=== PATIENT | female | born 1955 | race Caucasian/White ===

== ENCOUNTER 2022-02-03 10:49 | Inpatient (IN) ==
--- NOTE | 2022-01-12 15:29 | PAT Medication Instructions ---
Medication Instructions Date of Service January 12, 2022 Home Medications Medication Instructions Recorded albuterol sulfate 90 mcg/actuation 2 puff inhalation Q6H PRN 07/28/21 aerosol inhaler shortness of breath or wheezing #18 grams metformin 500 mg tablet 500 mg PO BID #180 tabs 12/29/21 canagliflozin 100 mg tablet 100 mg PO DAILY #30 tabs 01/11/22 albuterol sulfate 90 mcg/actuation aerosol inhaler 2 puff inhalation Q6H PRN olmesartan 40 mg tablet (Benicar) 40 mg PO QAM metoprolol succinate 50 mg tablet,extended release 24 hr (Toprol XL) 50 mg PO QAM clopidogrel 75 mg tablet (Plavix) 75 mg PO QAM metformin 500 mg tablet 500 mg PO BID canagliflozin 100 mg tablet 100 mg PO DAILY amlodipine 10 mg tablet 10 mg PO QAM STOP 3 days before surgery canagliflozin 100 mg tablet 100 mg PO DAILY ASK your prescriber and surgeon clopidogrel 75 mg tablet (Plavix) 75 mg PO QAM DO NOT take the morning of surgery olmesartan 40 mg tablet (Benicar) 40 mg PO QAM metformin 500 mg tablet 500 mg PO BID Take morning of surgery With a small sip of water, OTHERWISE NOTHING TO EAT OR DRINK AFTER MIDNIGHT: albuterol sulfate 90 mcg/actuation aerosol inhaler 2 puff inhalation Q6H PRN(use if needed; please bring with you to hospital day of surgery if possible) metoprolol succinate 50 mg tablet,extended release 24 hr (Toprol XL) 50 mg PO QAM amlodipine 10 mg tablet 10 mg PO QAM Take evening before surgery albuterol sulfate 90 mcg/actuation aerosol inhaler 2 puff inhalation Q6H PRN(if needed) Other Notes If you have any questions please call us at [phone] or [phone] or [phone] or [phone]
--- NOTE | 2022-01-16 14:10 | Anesthesiology Consultation ---
Date of Service January 16, 2022 Assessment & Plan (1) Encounter for pre-operative examination: - COVID screening: Per assessment on 01/16: No known COVID-19 positive contacts or current COVID-19 related symptoms. Travel screen negative. Patient vaccinated. At surgeon discretion if preop Covid testing being done. - PCP office visit (12/15/21): "I am seeing Ms. Peraza at the request of Dr. Hammer today for preoperative clearance for an upcoming Right Carotid Endarterectomy surgical intervention. As you know sherif is a very pleasant female with a past medical history as noted below. After a careful review of her chart, evaluation of her medical file, and a thorough physical examination, I have found that she is an guarded risk surgical candidate given her cardiac, pulmonary, Infectious and functional capacity. At this time, patient is medically cleared. Discussed need to f/u with Dr. Juares- Cardiology for pre- op clearance as well. After careful discussion of risks and benefits of surgical intervention, Ms. Peraza wishes to pursue the proposed surgical intervention. Blood work noted and discussed. EKG- NSR with 1st degree AV block." Patient s witched from carotid endarterectomy to Right Transcarotid Artery Revascularization. - Cardiology addendum (01/09/22): "Her stress test albeit at a submaximal HR was nonischemic. I think the risk with a Lexiscan nuke is significant as we may drop her blood pressure with Lexiscan and cause cerebral hypoperfusion with her significant carotid dz and aortic disease. She can proceed with CEA at intermediate risk 4-5% of cardiac complications including [place], , arrhythmia and CHF. I would be judicious with her fluids in the perioperative period to avoid CHF. We should see post op within a couple of weeks prior to planned open AAA repair.. The above mentioned CEA is actually a TCAR and the cardiac risk is unchanged" - Preop CXR: Done 01/16/22 at [facility]- noted "Emphysema with changes of superimposed chronic interstitial lung disease. Dependent airspace opacities may be related to chronic lung disease. Correlate clinically for evidence of a superimposed pneumonitis." Pt had recent Chest CT done 12/10/21 that showed "Reticular interstitial thickening with superimposed groundglass opacities compatible with fibrotic changes. Superimposed infectious/inflammatory process cannot be excluded. Findings are overall similar to appearance in 2020 and 2021." Chest CT done 12/10/21 was ordered by PCP who is monitored the chest imaging findings. PCP preop evaluation appt done 12/15/21. Patient denies cardiopulmonary complaints at PAT visit 01/16/22* Chart Review Chart Review: Acceptable Risk for Surgery (pending evaluation AM DOS) and Patient seen in Pre Admission Testing Teaching & Discussion Pre-Anesthesia Teaching/Discussion Notes: Instructed NPO after midnight before surgery,except medications with 15 cc of water. Medication instructions provided according to the [facility] guidelines. History Surgery Operation Date: 02/03/22 13:10 Proposed Procedures p Right Transcarotid Artery Revascularization - Rick Hammer MD Height/Weight Height: 5 ft 2 in Weight: 70.2 kg Allergies Allergy/AdvReac Type Severity Reaction Status Date / Time amoxicillin Allergy Mild RASH Verified 01/12/22 09:04 Medications Home Medications Medication Instructions Recorded Confirmed Last Taken albuterol sulfate 90 mcg/actuation 2 puff inhalation Q6H PRN 07/28/21 01/12/22 Unknown aerosol inhaler shortness of breath or wheezing #18 grams olmesartan 40 mg tablet (Benicar) 40 mg PO QAM 07/28/21 01/12/22 Unknown metoprolol succinate 50 mg 50 mg PO QAM 10/30/21 01/12/22 Unknown tablet,extended release 24 hr (Toprol XL) clopidogrel 75 mg tablet (Plavix) 75 mg PO QAM 12/15/21 01/12/22 Unknown metformin 500 mg tablet 500 mg PO BID #180 tabs 12/29/21 01/12/22 Unknown canagliflozin 100 mg tablet 100 mg PO DAILY #30 tabs 01/11/22 01/12/22 Unknown amlodipine 10 mg tablet 10 mg PO QAM 01/12/22 01/12/22 Unknown Past Medical History Medical History (Updated 01/16/22 @ 14:07 by Kori Buitrago) Abdominal aortic aneurysm Infrarenal aortic aneursym 53mm at maximal diameter per 09/23/21 abdomen/pelvis CTA (Follows with Dr. Zuniga with [facility]) Per 10/14/21 Dr. Hammer note- plan for open AAA repair as open procedure at [facility] (pt and Dr. 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 to the [place]; >75% stenosis of right ICA per 02/2021 neck CTA Depression Diabetes type 2, uncontrolled Hearing loss Only 5% function in left ear, [place] in right wears a right hearing aid HLD (hyperlipidemia) HTN (hypertension) Obesity Scarring of lung RECENT LUNG CT AT [facility] Sleep apnea Sleep study done- mild- no cpap Subclavian arterial stenosis 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 per 02/2021 neck CTA Past Family History Family History Brother Hypertension Other No family history of adverse response to anesthesia Denies family history of Ovarian cancer Prostate cancer Breast cancer Lung cancer Colorectal cancer Past Surgical History Surgical History H/O heart artery stent 3 STENTS IN, 2012-done at [facility] - DR KAPLAN LAST VISIT 08/2021 History of ear surgery History of tubal ligation Social History Smoking Status: Current every day smoker tobacco type: cigarettes Smoking cigarettes per day: 10 CIG DAILY Do You Dip or Chew Tobacco: No Hx Alcohol Use: No substance use type: does not use Review of Systems Patient denies chest pain, shortness of breath, dyspnea on exertion, fever, chills, cough, wheezing, palpitations. Physical Exam Vital Signs VITALS BP 106/67 P 75 TEMP 98.5 SP02 96%RA RESP 18 PHYSICAL Full cervical extension range of motion. Full TMJ range of motion. TMD 2.5 finger breaths Mallampati Score 2 Dentition: intact Lungs: clear throughout to auscultation Cardiac: regular rate and rhythm, no murmurs noted Spine: normal Carotid arteries: negative bruit Extremities: no edema Lab Results Anesthesia Preop Results Results Anesthesia Widget: WBC 10.18 K/ul (4.8-10.8) 01/16/22 Hgb 16.7 g/dl (12.0-16.0) H 01/16/22 Hct 47.4 % (34.1-44.9) H 01/16/22 Plt 285 K/uL (130-400) 01/16/22 Na 138 mmol/L (136-145) 01/16/22 K 3.8 mmol/L (3.5-5.1) 01/16/22 Cl 108 mmol/L (98-107) H 01/16/22 CO2 21 mmol/L (21-32) 01/16/22 BUN 19 mg/dl (6-23) 01/16/22 Creat 0.78 mg/dl (0.6-1.2) 01/16/22 Glucose Level 93 mg/dl (70-99(Fasting)) 01/16/22 PT 10.9 Seconds (9.0-12.0) 01/16/22 PTT 30.6 Seconds (21.0-31.0) 01/16/22 INR 1.0 (0.9-1.1) 01/16/22 Blood Type O Positive 01/16/22 Antibody Screen NEGATIVE 01/16/22 Testing Electrocardiogram Date: 12/15/21 Sinus rhythm with first-degree AV block at 79 bpm. Chest X-Ray Date: 01/16/22 FINDINGS: PA and lateral chest radiographs are compared to study dated 12/02/2021 and correlated with chest CT dated 12/10/2021. The cardiomediastinal silhouette is unremarkable noting atherosclerotic calcification of the thoracic aorta. Emphysema with changes of chronic interstitial lung disease is similar to previous. Given airspace opacities are noted at both lung bases. No pleural effusion or pneumothorax is identified. The skeletal structures are osteopenic. The bony thorax appears intact. A large peripheral calcified aneurysm is noted involving the abdominal aorta. IMPRESSION: Emphysema with changes of superimposed chronic interstitial lung disease. Dependent airspace opacities may be related to chronic lung disease. Correlate clinically for evidence of a superimposed pneumonitis. Stress Test Type: exercise (ECHO ) Exercise stress echocardiogram and EKG for ischemia at MPHR 71%. Average exercise tolerance for age and gender, 87% of predicted, achieving 5.5 METS. Baseline echo: Normal LV size and systolic function with no regional wall motion abnormalities. EF 65%. Asymmetric basal septal hypertrophy of the elderly. Other Testing Abdomen/Pelvis CTA 09/23/21 Infrarenal aortic aneurysm measuring 53 mm in maximal diameter. Extensive atherosclerotic disease without hemodynamically significant stenosis of the great vessel origins. Neck CTA 03/04/21 There is complete thrombosis of the left internal carotid artery from the bifurcation to the [place].There is complete thrombosis at the origin of the left subclavian artery. This is reconstituted below the thoracic outlet. Note that this may place the patient at risk for steal phenomenon.There is severe (greater than 75%) focal stenosis at the origin of the right internal carotid artery. The vertebral arteries are widely patent bilaterally. Emphysema. COVID-19 Risk Screen Screening Information COVID-19 Screen Date: 01/16/22 Exposure 21 Days Family/Household +COVID Last 21 Days: No Exposure 10 Days Any COVID Exposure Last 10 Days: No Symptoms Last 10 Days Experienced COVID Sx Last 10 Days: No + COVID 0-90 Days COVID + in Last 0-90 Days: No
--- NOTE | 2022-02-02 12:11 | History & Physical Report ---
Date of Service February 02, 2022 Assessment & Plan (1) Stenosis of right carotid artery: Plan: Patient admitted for a TCAR procedure of her right carotid artery. I have discussed the risks options and benefits of the procedure with the patient. The patient understands the risks options and benefits and agrees to the procedure. History of Present Illness Primary Care Provider: Malissa Dominguez DO Jacinta is a 65-year-old female who has an enlarging abdominal aortic aneurysm and is in need of repair. This was going to be done as an open procedure at [place]. She does have a severe stenosis of her right internal carotid artery and occlusion of her left internal carotid artery. She also has an occluded left subclavian artery. At this point she would prefer to have the endarterectomy done here at [facility] and then go ahead with her aortic surgery once she is recovered from the carotid surgical procedure. She is asymptomatic from her carotid disease at this point in time. She was to undergo a right carotid endarterectomy. As of September of this year TCAR procedure has been available to normal risk patients. We discussed the risks options liat efits of a TCAR versus carotid endarterectomy. Allergies Allergy/AdvReac Type Severity Reaction Status Date / Time amoxicillin Allergy Mild RASH Verified 01/12/22 09:04 Home Medications Medication Instructions Recorded Confirmed Type albuterol sulfate 90 mcg/actuation 2 puff inhalation Q6H PRN 07/28/21 01/12/22 Rx aerosol inhaler shortness of breath or wheezing #18 grams olmesartan 40 mg tablet (Benicar) 40 mg PO QAM 07/28/21 01/12/22 History metoprolol succinate 50 mg 50 mg PO QAM 10/30/21 01/12/22 History tablet,extended release 24 hr (Toprol XL) clopidogrel 75 mg tablet (Plavix) 75 mg PO QAM 12/15/21 01/12/22 History metformin 500 mg tablet 500 mg PO BID #180 tabs 12/29/21 01/12/22 Rx canagliflozin 100 mg tablet 100 mg PO DAILY #30 tabs 01/11/22 01/12/22 Rx amlodipine 10 mg tablet 10 mg PO QAM 01/12/22 01/12/22 History Past Med/Surg History Medical History Abdominal aortic aneurysm Infrarenal aortic aneursym 53mm at maximal diameter per 09/23/21 abdomen/pelvis CTA (Follows with Dr. Zuniga with [place]) Per 10/14/21 Dr. Hammer note- plan for open AAA repair as open procedure at [place] (pt and Dr. 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 to the [place]; >75% stenosis of right ICA per 02/2021 neck CTA Depression Diabetes type 2, uncontrolled Hearing loss Only 5% function in left ear, [place] in right wears a right hearing aid HLD (hyperlipidemia) HTN (hypertension) Obesity Scarring of lung RECENT LUNG CT AT [facility] Sleep apnea Sleep study done- mild- no cpap Subclavian arterial stenosis 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 per 02/2021 neck CTA Surgical History H/O heart artery stent 3 STENTS IN, 2012-done at [facility] [place] - DR KAPLAN LAST VISIT 08/2021 History of ear surgery History of tubal ligation Family History Brother Hypertension Other No family history of adverse response to anesthesia Denies family history of Ovarian cancer Prostate cancer Breast cancer Lung cancer Colorectal cancer Social History Smoking Status: Current every day smoker Age Started Using Tobacco: 19; packs per day: 1; Cigarettes Per Day: 10 CIG DAILY; Second Hand Exposure: No; Hx Alcohol Use: No Preferred Language: Malay Communication Ability: Impaired Visual Impairment: No Limitations Hearing Ability: Use of Hearing Aid Thread Grinder Required: No Beliefs That Will Affect Care: None marital status: Current Living Situation: Spouse current occupational status: employed current occupation: secratary Feels Safe at Home: Yes Childhood Exposure to Second-Hand Smoke: No caffeine: Yes (coffee) during the past year weight has: remained stable Dental Care, Regularly: No Physical Activity Frequency: Does not Exercise Seatbelt Use: always Sunscreen Use: No Assistive Devices: Glasses and Hearing Aid - Right Review of Systems All systems reviewed & are unremarkable except as noted in HPI & below Physical Exam Physical Exam: On exam she is awake alert and oriented x3. She is no apparent distress. Blood pressure is 130/52. Lungs are clear and her heart had a regular rate and rhythm. Abdominal exam is benign. Radials are +2 on the right cannot be felt on the left. Femorals are +2. Cannot appreciate pedal pulses in the feet. Capillary refill is normal in both feet. Neurologic exam is intact to motor and sensory function.
[~2022-02-03 10:49] MED LIST: CLINDAMYCIN/D5W 600 MG/54 ML BAG IV SCH; LACTATED RINGER'S 1,000 ML IV SCH; SUGAMMADEX SODIUM 200 MG/2 ML VIAL IV ONE
[2022-02-03] MEDS ORDERED: ePHEDrine sulfate 50 MG/ML AMP IV PRN (12:19)
[2022-02-03] MEDS ORDERED: ONDANSETRON INJ 2 MG/ML 2 ML VIAL IV PRN (12:19)
[2022-02-03] MEDS ORDERED: HYDROmorphone INJ 2 MG/ML SYR/VIAL IV PRN (12:19)
[2022-02-03] MEDS ORDERED: fentaNYL citrate 100 MCG/2 ML VIAL IV PRN (12:19)
[2022-02-03] MEDS ORDERED: ATROPINE SULFATE 0.1 MG/ML 10ML SYR IV PRN (12:19)
[2022-02-03] MEDS ORDERED: MIDAZOLAM HCL 1 MG/ML 2ML VIAL ONE (12:31)
[2022-02-03] MEDS ORDERED: ASPIRIN 81 MG CHEW PO STA (12:32)
--- NOTE | 2022-02-03 12:57 | History & Physical Bridge Note ---
Date of Service February 03, 2022 History & Physical Bridge Note I have examined the patient, reviewed the History & Physical and in the interval since the performance of the History & Physical I have noted the following changes of clinical significance: no changes noted
[2022-02-03] MEDS ORDERED: THROMBIN FOR SOLN 20000 UNIT KIT ONE (13:04)
[2022-02-03] MEDS ORDERED: fentaNYL citrate 100 MCG/2 ML VIAL ONE (13:16)
[2022-02-03] MEDS ORDERED: GLYCOPYRROLATE 0.2 MG/ML VIAL ONE (13:32)
--- NOTE | 2022-02-03 13:55 | Anesthesia Procedure Note ---
Anesthesia Procedure Note Arterial Line Note Patient medical history, medications, allergies and vitals reviewed. Consent: Risk / Benefits Reviewed With: PT / POA / Parent / Guardian, Accepts Plan, Informed Consent Obtained and All Questions Answered Monitors attached: Blood Pressure, CO2, EKG and Pulse Oximetry Time out completed: Yes Premedication: Midazolam (mg) (2) Laterality: Right Location: Radial Hand hygeine: Soap and water and Alcohol based hand rub Equipment/Supplies: Cap, Mask, Sterile gown, Sterile gloves, Sterile drapes and Sterile procedures used Skin prep: Chloraprep Local medication: 1% Lidocaine (ml) Ultrasound used: Yes US equipment and supplies: Sterile Gel Everardo test: Negative (return of flow) Attempts: 1 Procedure Summary: 20 gauge angiocath advanced until return of bright red blood. Catheter threaded using seldinger technique with return of pulsatile, bright red blood. Catheter secured with tape and covered with occlusive dressing. Waveform consistent with correct arterial placement. After placement, normal perfusion was observed distal to the site of catheter placement. procedure completed prior to OR. late entry Post-Procedure: Pt hemodynamically stable, Pt tolerates well and No complication Anesthesia Charges Arterial Line A Line Charges: 31962 Insert Art line Samp/Mon/Cornelius
[2022-02-03] MEDS ORDERED: VISIPAQUE IV ONE (14:22)
[2022-02-03] MEDS ORDERED: HEPARIN SOD (PORCINE) 1000 UNIT/ML ONE (14:50)
[2022-02-03] MEDS ORDERED: ONDANSETRON INJ 2 MG/ML 2 ML VIAL ONE (14:50)
[2022-02-03] MEDS ORDERED: ePHEDrine sulfate 50 MG/ML SYR ONE (14:50)
[2022-02-03] MEDS ORDERED: PHENYLEPHRINE HCL 10 MG/ML VIAL ONE (14:50)
[2022-02-03] MEDS ORDERED: PROPOFOL IV EMULSION 10 MG/ML 20 ML VIAL IV ONE (14:50)
--- NOTE | 2022-02-03 15:04 | Operative Report ---
Post Operative Report Pre & Post Diagnosis Operation Date: 02/03/22 13:00 Pre-Op Diagnosis: Right Internal Carotid Artery Stenosis Post-Op Diagnosis: Right Internal Carotid Artery Stenosis I identified the patient and participated in the time-out.: Yes Procedure Operation Date: 02/03/22 13:00 Actual Procedures p Right Transcarotid Artery Revascularization(Right), ultrasound localization of left femoral vein - Rick Hammer MD Surgeon Rick Hammer MD [employer] V[employer],PAC Estimated Blood Loss 20 Findings Consistent with Post-Op Diagnosis Specimens none Anesthesia Type General Complications none Disposition Accompanied Patient To Recovery: No Disposition: Recovery Room Indications This is a 66-year-old female who has a large abdominal aortic aneurysm and was found to have a severe stenosis of her right internal carotid artery. Intervention was recommended. We discussed TCAR versus endarterectomy. She elected to go ahead with TCAR procedure. I have discussed the risks options and benefits of the procedure with the patient. The patient understands the risks options and benefits and agrees to the procedure. Description of Procedure The patient was taken to the operating room and placed in supine position. After general anesthesia was accomplished the groins and right side of the neck and chest were prepped and draped in a sterile manner. Timeout was performed and the patient was identified. A transverse incision was made just above the clavicle between the heads of the sternocleidomastoid. This was carried down to where the common carotid artery was identified. It was isolated and slung with an umbilical tape. It was given 7000units of heparin at that time. Ultrasound was then used to localize the left common femoral vein. The vein was patent and compressed easily. Under ultrasound guidance the left common femoral vein was punctured and the venous sheath was inserted. This was aspirated and flushed with heparinized saline. An ACT at that time was 273. Using micropuncture technique the common carotid artery was punctured. The micro sheath was inserted to 3 cm. Injection was then done showing the bifurcation. There was a significant lesion seen at the origin of the internal carotid artery on the right side. We then inserted the J-wire and keep it short of the bifurcation of the carotid artery. The TCAR sheath was inserted. Once it was in place and held against the artery it was sutured to the chest wall and the incision edge. We then flushed the tubing appropriately. The venous return tubing was clamped onto the TCAR sheath. It was flushed through and then attached to the venous inflow sheath in the left groin. The sheath was checked for flow. We then inserted a 4 x 3 balloon backloaded on the wire. We could not pass the wire into the internal carotid artery. We then used a Kumpe catheter to get the angle of the internal. Using the Kumpe the wire passed into the internal carotid artery up to the petrous portion. The Kumpe was then removed. The 4 balloon was then advanced to the lesion. The lesion was then predilated with the 4 mm balloon. The balloon was removed. We then inserted the 9 x 30 stent. This was deployed across the lesion without difficulty. The catheter was removed. The stent itself jumped forward and did not cover the entire proximal portion of the lesion. At that point was decided to insert another stent. We passed the 4 x 3 balloon again to try to expand the stent. The balloon would not pass. We then reinserted the Kumpe. This would not and a distended either. We then cut off a proximally 45 cm of an 014 quick cross and inserted that over the 014 wire. This was able to cross into the stent to beyond the distal end of the stent. We then exchanged a wire to an 014 command ES. Using a 4 x 4 Armando balloon we dilated the proximal portion of the stent. It dilated up nicely. This balloon was removed. We then inserted another 9 x 30 stent. This overlapped the old stent and deployed nicely extending into the distal common carotid artery. The carotid was allowed to go 2 minutes with flow reversal. Completion angiogram was done at that time which showed no residual stenosis. We did not post balloon the second stent placed. The wire was removed. At that point the common carotid artery was unclamped. The venous return tubing was clamped and removed from the TCAR sheath. The blood was allowed to flow back into the venous system. Once this was completed the sheath was pulled from the groin and pressure was applied. The TCAR sheath was then removed and the 5-0 Prolene suture securely tied. Hemostasis was noted of the puncture site. Wound was irrigated with Ancef solution. Adequate hemostasis was obtained of the wound. Once this was noted the wound was closed in usual fashion using a 3-0 Vicryl suture for the subcutaneous layer and a 4-0 subcuticular Vicryl suture for the skin edges. Dermabond was used for dressing.The patient left the operation room in satisfactory condition and tolerated the procedure well. All needle and sponge counts were correct at the end of the procedure. Simi Mosqueda Pac assisted due to lack of resident availability and was necessary for positioning, draping, retraction, wound closure deep layers, subcutaneous tissue, and skin closure and was necessary for assisting with the case. I attest to the content of the Intraoperative Record and any orders documented therein. Any exceptions are noted below.
[2022-02-03] MEDS ORDERED: ALBUT/IPRATROP 3MG/0.5MG NEB 3 ML VIAL ONE (15:56)
--- NOTE | 2022-02-03 16:01 | Communication Note ---
Date of Service: February 03, 2022 pt c/o difficulty breathing. Pt is CTA b/l but slightly prolonged exhalation. I listened to her upper airway and did not hear any abnormalities. Air moved freely. Pt recently quit smoking <1 month ago. I ordered a duoneb to try to imrpve exhalation
--- NOTE | 2022-02-03 16:06 | Anesthesiology Progress Note ---
Date of Service February 03, 2022 Anesthesia Post Procedure Vital Signs Vital Signs: Temp Pulse Pulse Resp BP BP BP 02/03/22 15:55 81 17 121/69 129/65 02/03/22 15:45 81 15 115/66 120/48 L 02/03/22 15:35 81 19 119/65 121/58 L 02/03/22 15:27 36.1 C L 84 18 113/90 105/49 L 02/03/22 11:20 36.9 C 72 20 95/65 L 142/60 H Pulse Ox O2 Del Method O2 Flow Rate 02/03/22 15:55 100 Oxymask 4 02/03/22 15:45 99 Oxymask 4 02/03/22 15:35 99 Oxymask 9 02/03/22 15:27 98 Oxymask 9 02/03/22 11:20 97 Room Air Transfer of Care Handoff Completed per policy Notes Mental Status: alert / awake / arousable and participated in evaluation Patient Amnestic to Procedure: Yes Nausea / Vomiting: adequately controlled Pain: adequately controlled Airway Patency, RR, SpO2: stable & adequate BP & HR: stable & adequate Hydration State: stable & adequate Anesthetic Complications: no major complications apparent and Pt Satisfied with anesthetic care Notes: pt feels better after duoneb. ok to go to icu
--- NOTE | 2022-02-03 16:27 | Critical Care Consultation ---
Date of Consultation February 03, 2022 Assessment & Plan (1) Stenosis of right carotid artery: Status post right TCAR. Continue frequent neurovascular checks and close evaluation of the airway. Pain control and blood pressure control per vascular surgery team. Defer antiplatelet therapy/statin to vascular surgery. (2) Tobacco use: Patient notes she quit smoking 1 month ago. DuoNebs as needed. (3) CAD (coronary artery disease): History of extensive coronary artery disease. Monitor closely on telemetry. (4) Abdominal aortic aneurysm: Patient going to undergo open repair at [facility] at a later date. (5) Diabetes type 2, uncontrolled: Sliding scale insulin History of Present Illness Reason for Consultation: Status post right TCAR Attending Physician: Rick Hammer MD History of Present Illness 66-year-old female with a history of left subclavian artery stenosis, left carotid artery stenosis, high-grade stenosis of the right internal carotid, coronary artery disease status post angioplasty to the circumflex,, occlusion of RCA mid LAD and LAD stent, hyperlipidemia, hypertension and tobacco abuse who presented for elective right TCAR. She also has enlarging abdominal aortic aneurysm which she is not going to undergo surgery at [facility]. Hemodynamics are stable postoperatively. She is complaining of pain at the incision site at the base of the right neck. She was also having some trouble with shortness of breath post extubation which has improved some. She is very hard of hearing and review of systems is difficult to obtain. She denies any chest pain. No nausea or vomiting. She is very anxious. She has an arterial line in place. She is currently on 2 L of oxygen. Daughter is at bedside. Allergies Allergy/AdvReac Type Severity Reaction Status Date / Time amoxicillin Allergy Mild RASH Verified 02/03/22 11:17 Home Medications Medication Instructions Recorded Confirmed Type albuterol sulfate 90 mcg/actuation 2 puff inhalation Q6H PRN 07/28/21 02/03/22 Rx aerosol inhaler shortness of breath or wheezing #18 grams olmesartan 40 mg tablet (Benicar) 40 mg PO QAM 07/28/21 02/03/22 History metoprolol succinate 50 mg 50 mg PO QAM 10/30/21 02/03/22 History tablet,extended release 24 hr (Toprol XL) clopidogrel 75 mg tablet (Plavix) 75 mg PO QAM 12/15/21 02/03/22 History metformin 500 mg tablet 500 mg PO BID #180 tabs 12/29/21 02/03/22 Rx amlodipine 10 mg tablet 10 mg PO QAM 01/12/22 02/03/22 History aspirin 81 mg tablet 81 mg PO DAILY 02/03/22 02/03/22 History canagliflozin 100 mg tablet 100 mg PO DAILY 02/03/22 02/03/22 History (Invokana) rosuvastatin 20 mg tablet 20 mg PO DAILY 02/03/22 02/03/22 History Patient History Medical History Abdominal aortic aneurysm Infrarenal aortic aneursym 53mm at maximal diameter per 09/23/21 abdomen/pelvis CTA (Follows with Dr. Zuniga with [facility]) Per 10/14/21 Dr. Hammer note- plan for open AAA repair as open procedure at [facility] (pt and Dr. 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 to the [place]; >75% stenosis of right ICA per 02/2021 neck CTA Depression Diabetes type 2, uncontrolled Hearing loss Only 5% function in left ear, [place] in right wears a right hearing aid HLD (hyperlipidemia) HTN (hypertension) Obesity Scarring of lung RECENT LUNG CT AT [facility] Sleep apnea Sleep study done- mild- no cpap Subclavian arterial stenosis 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 per 02/2021 neck CTA Surgical History H/O heart artery stent 3 STENTS [place], 2012[place]done at [facility] [place] KAPLAN LAST VISIT 08/2021 History of ear surgery History of tubal ligation Family History Brother Hypertension Other No family history of adverse response to anesthesia Denies family history of Ovarian cancer Prostate cancer Breast cancer Lung cancer Colorectal cancer Social History Smoking Status: Current every day smoker Age Started Using Tobacco: 19; packs per day: 1; Cigarettes Per Day: 10 CIG DAILY; Second Hand Exposure: No; Do You Dip or Chew Tobacco: No; Hx Alcohol Use: No Hx Substance Use: No Preferred Language: Trinidadian Communication Ability: Impaired Communication Ability Comment: CAN NOT HEAR WITHOUT HEARING AID IN RT EAR>DEAF IN LEFT EAR Visual Impairment: No Limitations Hearing Ability: Use of Hearing Aid Development Technologist Required: No Beliefs That Will Affect Care: None marital status: Current Living Situation: Spouse current occupational status: employed current occupation: secratary Feels Safe at Home: Yes Safety Concerns: Feels Safe At This Time Childhood Exposure to Second-Hand Smoke: No caffeine: Yes (coffee) during the past year weight has: remained stable Dental Care, Regularly: No Physical Activity Frequency: Does not Exercise Seatbelt Use: always Sunscreen Use: No Assistive Devices: Hearing Aid - Right Assistive Devices Comment: DEAF IN LEFT EAR Review of Systems Review of Systems: All systems reviewed & are unremarkable except as noted in HPI & below Physical Exam Physical Exam: Constitutional: Patient appears to be of their stated age. Anxious appearing. Patient is well-developed. Eyes: Pupils are equal round and reactive to light. Conjunctivae are normal. Anicteric sclera. Ears nose, mouth and throat: Deferred. Neck: Trachea is midline. Visual inspection is normal. Respiratory: Clear to auscultation bilaterally. Prolonged phase of exhalation. Cardiovascular: Regular rate and rhythm. No murmurs. No edema. Gastrointestinal: Normal bowel sounds, soft, nontender and nondistended. No hepatosplenomegaly noted. Musculoskeletal: No cyanosis. Patient is able to move all extremities. Strength is 5 out of 5 in the upper and lower extremities. Skin: No rashes, warm dry and intact. Right horizontal incision noted at the base of the neck at the location of the TCAR which is held together with Dermabond. Neurologic: No obvious focal neurological deficits seen. Psychiatric: Alert and oriented x3 with an anxious affect. Results & Data Results & Data ([facility]) Vital Signs (Past 12 Hours) Vital Signs Temp Pulse Pulse Resp BP BP BP 02/03/22 16:15 88 13 116/59 L 114/44 L 02/03/22 16:05 36.2 C L 87 17 115/60 113/54 L 02/03/22 15:55 81 17 121/69 129/65 02/03/22 15:45 81 15 115/66 120/48 L 02/03/22 15:35 81 19 119/65 121/58 L 02/03/22 15:27 36.1 C L 84 18 113/90 105/49 L 02/03/22 11:20 36.9 C 72 20 95/65 L 142/60 H Pulse Ox O2 Del Method O2 Flow Rate 02/03/22 16:15 99 Nasal Cannula 2 02/03/22 16:05 100 Nasal Cannula 2 02/03/22 15:55 100 Oxymask 4 02/03/22 15:45 99 Oxymask 4 02/03/22 15:35 99 Oxymask 9 02/03/22 15:27 98 Oxymask 9 02/03/22 11:20 97 Room Air Coding Level of Care Code 00933 Inpt Consult Level 4 Diagnoses Stenosis of right carotid artery I65.21 Tobacco use Z72.0 CAD (coronary artery disease) I25.10 Abdominal aortic aneurysm I71.4 Diabetes type 2, uncontrolled
[2022-02-03] MEDS ORDERED: PHARMACY GLYCEMIC MGMT CONSULT PRN (16:41)
[2022-02-03] MEDS ORDERED: ALBUTEROL HFA 8 GM INHALER INH PRN (16:41)
[2022-02-03] MEDS: LACTATED RINGER'S 1,000 ML IV SCH (16:57)
[2022-02-03] MEDS: oxyCODONE/ACETAMINOPHEN 5mg/325mg TAB PO PRN ×2 (17:01→21:11)
[2022-02-03] MEDS ORDERED: CARBOHYDRATES FOR HYPOGLYCEMIA PO PRN (17:30)
[2022-02-03] MEDS ORDERED: GLUCOSE 10 TAB/TUBE PO PRN (17:30)
[2022-02-03] MEDS ORDERED: GLUCAGON FOR INJ 1 MG VIAL IM PRN (17:30)
[2022-02-03] MEDS ORDERED: DEXTROSE 50% 50 ML SYRINGE IV PRN (17:30)
[2022-02-03] MEDS ORDERED: GLUCOSE 40% GEL 15 GM TUBE PO PRN (17:30)
[2022-02-03] MEDS: INSULIN ASPART PER UNIT SC SCH ×2 (17:55→21:58)
[2022-02-03] MEDS ORDERED: MoRPHine SULFATE 2 MG/ML CARP IV PRN (18:35)
[2022-02-03] MEDS: CLINDAMYCIN/D5W 600 MG/50 ML BAG IV SCH (20:37)
[2022-02-03] MEDS ORDERED: metFORMIN HCL 500 MG TAB PO SCH (21:00)
[2022-02-03] MEDS ORDERED: LANTUS PER UNIT CHARGE SQ SCH (21:00)
[2022-02-04] MEDS: LACTATED RINGER'S 1,000 ML IV SCH (00:16)
[2022-02-04] MEDS ORDERED: INSULIN ASPART PER UNIT SC ONE (02:00)
[2022-02-04] MEDS: CLINDAMYCIN/D5W 600 MG/50 ML BAG IV SCH (05:41)
[2022-02-04] MEDS: INSULIN ASPART PER UNIT SC SCH ×3 (08:37→11:55)
[2022-02-04] MEDS ORDERED: FUROSEMIDE 40 MG/4 ML VIAL IV ONE (08:52)
[2022-02-04] MEDS ORDERED: LORazepam 1 MG in SYRINGE 0 ML IV STA (08:52)
--- NOTE | 2022-02-04 08:57 | Critical Care Progress Note ---
Date of Service February 04, 2022 Assessment & Plan (1) Hypoxia: Plan: Secondary to acute CHF. Continue to wean as able. (2) Acute diastolic (congestive) heart failure: Plan: We will give a one-time dose of 40 mg IV Lasix. Discussed with Dr. Hammer and he is in agreement. (3) Acute anxiety: Plan: Secondary to difficulty with communication as the patient is profoundly hard of hearing and CHF. We will give a dose of 1 mg Ativan and Lasix as noted above. (4) Stenosis of right carotid artery: Plan: Status post right TCAR. Continue frequent neurovascular checks and close evaluation of the airway. Pain control and blood pressure control per vascular surgery team. Defer antiplatelet therapy/statin to vascular surgery. (5) Tobacco use: Plan: Patient notes she quit smoking 1 month ago. DuoNebs as needed. (6) CAD (coronary artery disease): Plan: History of extensive coronary artery disease. Monitor closely on telemetry. (7) Abdominal aortic aneurysm: Plan: Patient going to undergo open repair at [facility] at a later date. (8) Diabetes type 2, uncontrolled: Plan: Sliding scale insulin Admission and Anticipated Discharge Date Admission Date: February 03, 2022 Subjective Patient seen and examined. She is profoundly hard of hearing. She is very anxious this morning and crying at times. She is complaining of shortness of breath. IV fluids have been discontinued. Review of Systems Review of Systems: All systems reviewed & are unremarkable except as noted in HPI & below Physical Exam Physical Exam: Constitutional: Patient appears to be of their stated age. Anxious appearing. Patient is well-developed. Eyes: Pupils are equal round and reactive to light. Conjunctivae are normal. Anicteric sclera. Ears nose, mouth and throat: Deferred. Neck: Trachea is midline. Visual inspection is normal. Respiratory: Diffuse crackles bilaterally. Mild tachypnea. Cardiovascular: Regular rate and rhythm. No murmurs. No edema. Gastrointestinal: Normal bowel sounds, soft, nontender and nondistended. No hepatosplenomegaly noted. Musculoskeletal: No cyanosis. Patient is able to move all extremities. Strength is 5 out of 5 in the upper and lower extremities. Skin: No rashes, warm dry and intact. Right horizontal incision noted at the base of the neck at the location of the TCAR which is held together with Dermabond. Neurologic: No obvious focal neurological deficits seen. Psychiatric: Alert and oriented x3 with an anxious affect. Results & Data Results & Data ([facility]) Vital Signs (Past 12 Hours) Vital Signs Temp Pulse Resp BP Pulse Ox O2 Del Method O2 Flow Rate 02/04/22 06:00 68 16 89 L 02/04/22 06:00 70/42 L 02/04/22 05:40 56 L 17 93 02/04/22 05:40 76/48 L 02/04/22 05:01 69/39 L 02/04/22 05:01 52 L 15 02/04/22 05:00 56 L 20 89 L 02/04/22 05:00 69/45 L 02/04/22 04:00 56 L 16 95 02/04/22 04:00 89/56 L 02/04/22 03:00 58 L 22 94 02/04/22 03:00 89/60 L 02/04/22 02:54 36.9 C 02/04/22 02:00 54 L 20 96 02/04/22 02:00 84/61 L 02/04/22 01:00 53 L 19 02/04/22 01:00 79/54 L 02/04/22 00:00 59 L 23 96 02/04/22 00:00 96/64 L 02/03/22 23:00 54 L 19 95 02/03/22 23:00 92/45 L 02/03/22 23:02 56 L 02/03/22 23:00 36.5 C 02/03/22 22:30 81/59 L 02/03/22 22:30 61 19 95 02/03/22 22:22 61 20 96 02/03/22 22:22 91/56 L 02/03/22 22:06 63 9 L 98 02/03/22 22:06 77/57 L 02/03/22 22:04 67/41 L 02/03/22 22:04 60 16 02/03/22 22:02 68/43 L 02/03/22 22:02 58 L 17 02/03/22 22:00 58 L 16 02/03/22 22:00 65/44 L 02/03/22 21:41 61 20 99 02/03/22 21:41 80/49 L 02/03/22 21:00 68 21 02/03/22 21:00 74/53 L 02/03/22 21:46 Nasal Cannula 2 Coding Level of Care Code 22376 Subseq Hosp Care Lvl 3 Diagnoses Hypoxia R09.02 Acute diastolic (congestive) heart failure I50.31 Acute anxiety F41.9 Stenosis of right carotid artery I65.21 Tobacco use Z72.0 CAD (coronary artery disease) I25.10 Abdominal aortic aneurysm I71.4 Diabetes type 2, uncontrolled
[2022-02-04] MEDS ORDERED: amLODIPine BESYLATE 5 MG TAB PO SCH (09:00)
[2022-02-04] MEDS ORDERED: CLOPIDOGREL BISULFATE 75 MG TAB PO SCH (09:00)
[2022-02-04] MEDS ORDERED: ROSUVASTATIN CALCIUM 20 MG TAB PO SCH (09:00)
[2022-02-04] MEDS ORDERED: OLMESARTAN MEDOXOMIL 40 MG TAB PO SCH (09:00)
[2022-02-04] MEDS ORDERED: NON-FORMULARY MEDICATION (Canagliflozin [Invokana] 100 mg tablet) PO SCH (09:00)
[2022-02-04] MEDS ORDERED: METOPROLOL SUCC 50MG EXT REL TAB PO SCH (09:00)
[2022-02-04] MEDS ORDERED: ASPIRIN 81 MG ECTAB PO SCH (09:00)
--- NOTE | 2022-02-04 12:25 | Pharmacy Report ---
Pharmacy Glycemic Short Note 2 - Date of Service February 04, 2022 - Glycemic Short BSG Results (Last 24 hours): 02/03/22 02/03/22 02/04/22 15:31 20:20 01:55 POC Glucose 123 H 107 H 120 H 02/04/22 02/04/22 07:30 11:32 POC Glucose 117 H 136 H OUTPATIENT ANTIDIABETIC REGIMEN: * A1c: 8.7% 11-10-21 * Metformin 500mg BID * Canagliflozin 100mg daily ASSESSMENT: * BSGs have remained acceptable ([phone] mg/dL) despite patient receiving no insulin thus far. It appears patient is refusing novolog. Initial lantus orders were held last night. Will continue to hold given BSG trend. * Patient did eat a small meal this morning so will continue to monitor trend PLAN FOR INPATIENT GLYCEMIC CONTROL: * Hold outpatient oral diabetes medications * Basal insulin * hold lantus at this time * Bolus insulin * NovoLog per scale ACHS or Q6hrs while NPO * Goal Range: Low 110 mg/dL - High 140 mg/dL * Correction Factor: 30 mg/dL/unit * Nutritional / Prandial insulin per carb ratio of 1 unit per 10 grams CHO consumed
--- NOTE | 2022-02-04 13:34 | Surgery Progress Note ---
Date of Service February 04, 2022 Assessment & Plan (1) Internal carotid artery stent present: Plan: Doing well Will d/c today Admission and Anticipated Discharge Date Admission Date: February 03, 2022 Subjective Patient says she feels good. No weakness. No lightheadedness or dizziness. Physical Exam Constitutional: WD/WN, vitals as above Neck: trachea midline Respiratory: normal respiratory effort; no respiratory distress Cardiovascular: Rate/Rhythm: regular rate and regular rhythm Musculoskeletal: no cyanosis or clubbing, extremities motor strength 5/5 Skin: + incision (dry and clean) Neurologic: CN's II-XI intact bilaterally and moves all extremities Psychiatric: Orientation: alert and oriented x 3 Results & Data ([facility]) Vital Signs (Past 12 Hours) Vital Signs Temp Pulse Resp BP Pulse Ox O2 Del Method 02/04/22 12:00 66 21 02/04/22 11:00 58 L 20 02/04/22 10:00 51 L 26 H 94 Room Air 02/04/22 09:00 81 18 02/04/22 08:00 59 L 21 97 02/04/22 08:00 88/56 L 02/04/22 07:00 54 L 18 94 02/04/22 07:00 79/49 L 02/04/22 06:00 68 16 89 L 02/04/22 06:00 70/42 L 02/04/22 05:40 56 L 17 93 02/04/22 05:40 76/48 L 02/04/22 05:01 69/39 L 02/04/22 05:01 52 L 15 02/04/22 05:00 56 L 20 89 L 02/04/22 05:00 69/45 L 02/04/22 04:00 56 L 16 95 02/04/22 04:00 89/56 L 02/04/22 03:00 58 L 22 94 02/04/22 03:00 89/60 L 02/04/22 02:54 36.9 C 02/04/22 02:00 54 L 20 96 02/04/22 02:00 84/61 L
--- NOTE | 2022-02-04 13:58 | Discharge Summary ---
Date of Service February 04, 2022 Admission HPI Per Admitting Provider Jacinta is a 65-year-old female who has an enlarging abdominal aortic aneurysm and is in need of repair. This was going to be done as an open procedure at [facility]. She does have a severe stenosis of her right internal carotid artery and occlusion of her left internal carotid artery. She also has an occluded left subclavian artery. At this point she would prefer to have the endarterectomy done here at [facility] and then go ahead with her aortic surgery once she is recovered from the carotid surgical procedure. She is asymptomatic from her carotid disease at this point in time. She was to undergo a right carotid endarterectomy. As of September of this year TCAR procedure has been available to normal risk patients. We discussed the risks options benefits of a TCAR versus carotid endarterectomy. Admission Exam Per Admitting Provider On exam she is awake alert and oriented x3. She is no apparent distress. Blood pressure is 130/52. Lungs are clear and her heart had a regular rate and rhythm. Abdominal exam is benign. Radials are +2 on the right cannot be felt on the left. Femorals are +2. Cannot appreciate pedal pulses in the feet. Capillary refill is normal in both feet. Neurologic exam is intact to motor and sensory function. Principal Diagnosis 1. s/p R TCAR 2. Severe R ICA stenosis Discharge Exam Constitutional WD/WN, vitals as above Neck trachea midline Respiratory normal respiratory effort; no respiratory distress Cardiovascular Rate/Rhythm: regular rate and regular rhythm Musculoskeletal no cyanosis or clubbing, extremities motor strength 5/5 Skin + incision (dry and clean) Neurologic CN's II-XI intact bilaterally and moves all extremities Psychiatric Orientation: alert and oriented x 3 Discharge Data Allergies Allergy/AdvReac Type Severity Reaction Status Date / Time amoxicillin Allergy Mild RASH Verified 02/03/22 11:17 Consultations 02/03/22 16:41 Consult Wire Welder Routine Procedures Performed Operation Date: 02/03/22 13:00 Actual Procedures p Right Transcarotid Artery Revascularization(Right) - Rick Hammer MD Ordered Studies 02/03/22 07:19 EV angio carotid external RT Routine US EV guide vascular access Routine Hospital Course (1) Internal carotid artery stent present: Doing well POD #1 Will d/c today Total Time Total Time Spent Total Time Spent (In Minutes): 0 Discharge Plan Discharge Items Patient Disposition: Home - Self-Care Reason For Visit: Right Internal Carotid Artery Stenosis Discharge Diagnosis: Right internal carotid artery stenosis, post carotid stent Activity: Per Instructions section Non-emergency contact: Specialist Call non-emergency contact if: your temperature is above 101.5, your wound has increased redness, your wound has increased drainage and your wound pain has increased Follow-up/Referrals: Malissa Dominguez DO [Primary Care Provider] - Diet: Carb Consistent or DM2 and Heart Healthy Addtl Attending Provider Instructions: SPECIAL CARE INSTRUCTIONS: Medications: * Continue to take Aspirin, Plavix, and statin as directed. Do not stop taking these medications Resume home medications as per d/c instruction sheet Incision Care: * You may shower, but do not rub incision. You may let the warm soapy water run over it. Be sure to dry the incision well after bathing. * Do not shave directly over the incision until it is healed. * DO NOT IMMERSE THE INCISION IN A TUB/POOL/etc. UNTIL HEALED. Restrictions: * Do not drive for at least one week or if you are still taking any narcotic pain medication. * Do not lift anything heavier than a gallon of milk for one week after going home. Possible Complications: * Numbness - It is normal to have some numbness around the incision. Numbness can extend beyond the incision to areas of the neck, ear and face. The numbness is due to bruising of nerves during the surgery and will gradually improve over a period of months. * Hoarseness/Difficulty Speaking and Swallowing - The bruising of nerves in the neck can also cause a hoarse voice, difficulty speaking or swallowing. This may improve over time, HOWEVER, if it continues for more than a few days please contact our office ([phone]). * Excessive Swelling - There will be some swelling immediately after surgery which usually resolves within one week. If you notice that the swelling is getting worse, notify your surgeon ([phone]). * Drainage/Bleeding - If there is any drainage or bleeding, it should be a very small amount (less than a teaspoon per day). If you have excessive bleeding or drainage from the incision, call your surgeon ([phone]) right away. ACTIVATION OF EMERGENCY MEDICAL SYSTEM: Call 911, immediately, if you experience any of the following: Warning Signs and Symptoms of Stroke: * Sudden numbness or weakness of the face, arm or leg, especially on one side of the body * Sudden confusion, trouble speaking or understanding * Sudden trouble seeing in one or both eyes * Sudden trouble walking, dizziness, loss of balance or coordination * Sudden severe headache with no cause Do not delay calling 911 if you experience any warning signs or symptoms of a stroke. Delay in seeking medical attention may affect what treatments can be given to you. Risk Factors for Stroke: You can reduce your chances of stroke by working with your medical provider to adopt a healthy lifestyle. Some specific ways to lower your chance of stroke are: * If you are a smoker, now is the time to stop smoking cigarettes * If you are diabetic, improve the control of your blood sugars * Avoid excessive amounts of alcohol * Control high blood pressure * Lose weight if you are overweight * Be sure to lead an active lifestyle * Eat a healthy diet low in salt, cholesterol and fat You should know about other risk factors for stroke that you are unable to control. These include: * Age 55 years or older * Male gender * Certain racial groups: , or / * Family History of Stroke, Mini stroke or Heart Attack * Sickle Cell Disease You will be receiving a call from the Vascular Surgery Nurse after you are discharged. FOLLOW UP VISIT: It is important for you to keep your follow up appointments with your medical provider. Keep any scheduled doctor appointments. Pending Studies at Discharge: No Stand-Alone Forms: My [facility], Smoking Cessation Medications and DC Order Prescriptions: New oxycodone-acetaminophen [Percocet] 5-325 mg tablet 1 tab PO Q8H PRN (Reason: pain) Qty: 14 0RF Continued metformin 500 mg tablet 500 mg PO BID Qty: 180 1RF olmesartan [Benicar] 40 mg tablet 40 mg PO QAM Rx Instructions: 40 mg PO albuterol sulfate 90 mcg/actuation HFA aerosol inhaler 2 puff inhalation Q6H PRN (Reason: shortness of breath or wheezing) Qty: 18 3RF Label Comments: HAS NEVER USED PER PATIENT clopidogrel [Plavix] 75 mg tablet 75 mg PO QAM amlodipine 10 mg Tablet 10 mg PO QAM aspirin 81 mg Tablet 81 mg PO DAILY Invokana 100 mg tablet 100 mg PO DAILY Label Comments: QAM rosuvastatin 20 mg Tablet 20 mg PO DAILY metoprolol succinate [Toprol XL] 50 mg tablet extended release 24 hr 50 mg PO QAM Discharge Orders: Discharge Order (Routine); Ordered 02/04/22 Ordered By: Rick Hammer Admission Data Admit Date/Time: 02/03/22 12:57 Attending Provider: Rick Hammer Admit Provider: Rick Hammer Primary Care Provider: Malissa Dominguez Other Providers: Ankit Goodwin ; Justin Romero ; Lionel Young ; Roberto Miller ; Raúl Hi ; Zan Rodriguez ; Ayala Cabezas ; Migel Weeks ; Love Pineda
== END 2022-02-04 15:15 | disposition home or self-care (01) | DRG 36 ==
LOC: ASU 10:49 → 1E 12:57
PROC: EV.TCAR (2022-02-03 13:00)
DX: E11.9 Type 2 diabetes mellitus without complications; I25.10 Atherosclerotic heart disease of native coronary artery without angina pectoris; Z79.84 Long term (current) use of oral hypoglycemic drugs; Z95.5 Presence of coronary angioplasty implant and graft; Z88.1 Allergy status to other antibiotic agents; E78.5 Hyperlipidemia, unspecified; F17.210 Nicotine dependence, cigarettes, uncomplicated; I70.8 Atherosclerosis of other arteries; I65.21 Occlusion and stenosis of right carotid artery; I71.40 Abdominal aortic aneurysm, without rupture, unspecified

== ENCOUNTER 2023-07-14 06:24 | Inpatient (IN) ==
--- NOTE | 2023-06-15 14:39 | PAT Medication Instructions ---
Medication Instructions Date of Service June 15, 2023 Home Medications Medication Instructions Recorded blood sugar diagnostic ([employer]Touch #100 ea 02/06/22 Verio test strips) blood-glucose meter ([employer] #1 ea 02/06/22 Verio Meter) lancets 33 gauge ([employer] Delica #100 ea 02/06/22 Lancets) olmesartan 40 mg tablet (Benicar) 40 mg PO QAM metoprolol succinate 50 mg tablet,extended release 24 hr (Toprol XL) 50 mg PO QAM clopidogrel 75 mg tablet (Plavix) 75 mg PO QAM amlodipine 10 mg tablet 10 mg PO QAM aspirin 81 mg tablet 81 mg PO DAILY rosuvastatin 20 mg tablet 20 mg PO QAM hydralazine 25 mg tablet 25 mg PO TID ASK your prescriber and surgeon clopidogrel 75 mg tablet (Plavix) 75 mg PO QAM aspirin 81 mg tablet 81 mg PO DAILY DO NOT take the morning of surgery olmesartan 40 mg tablet (Benicar) 40 mg PO QAM Take morning of surgery With a small sip of water, OTHERWISE NOTHING TO EAT OR DRINK AFTER MIDNIGHT: metoprolol succinate 50 mg tablet,extended release 24 hr (Toprol XL) 50 mg PO QAM amlodipine 10 mg tablet 10 mg PO QAM rosuvastatin 20 mg tablet 20 mg PO QAM hydralazine 25 mg tablet 25 mg PO TID Take evening before surgery hydralazine 25 mg tablet 25 mg PO TID Other Notes If you have any questions please call us at [phone] or [phone] or [phone] or [phone]
--- NOTE | 2023-06-17 09:11 | Anesthesiology Consultation ---
Date of Service June 17, 2023 Assessment & Plan (1) Encounter for pre-operative examination: - awaiting PCP pre-operative optimization notation including regarding noted clubbing and pulmonary history and if any testing/intervention is advised before surgery. Optimization form to be faxed to PCP with PAT testing. - Case discussed in detail with Dr. Daniels including noted clubbing of fingernails and he advised obtaining a PCP clearance notation. He advised that cardiology clearance is not needed. Patient was notified, she states did see her PCP Dr. Maribell Ocampo with PSH 06/02/23. Will request PCP office note. She denies additional chest CT after 2021. Surgeon's office made aware. - check BSG am DOS. - cardiology office visit 04/21/23: "...denies any chest pain or chest pressure...coronary artery disease with severe 3-vessel CAD...70-80% mid LAD and total occlusion of the LAD, the mid to distal portion of the LAD, 80-90% Cx into the marginal branch, total occlusion of the distal RCA with collaterals from the septal perforators of the LAD before the occlusion, preserved LV systolic function. Status post ANITA to Cx and large marginal branch x 2 and ANITA to mid LAD which did not remain patent...rapidly enlarging infrarenal abdominal aortic aneurysm greater than 5.5 cm status post PVAR and right to left fem-fem bypass 03/2022...blood pressure remains elevated...discussed increasing her hydralazine to 25 mg tid from 10 mg tid...her only blood pressure that is potentially correct is using her right arm...negative stress test in 2021 at 71% of predicted..." Chart Review Chart Review: Pending: Refer to Additional Notes / Consult section and Patient seen in Pre Admission Testing Teaching & Discussion Pre-Anesthesia Teaching/Discussion Notes: Instructed NPO after midnight before surgery, except medications with 15 cc of water. Medication instructions provided according to the PAT guidelines. History Surgery Operation Date: 07/14/23 10:00 Proposed Procedures p Re-Do Right Transcarotid Artery Revascularization - Rick Hammer MD Height/Weight Height: 5 ft 2 in Weight: 71.9 kg Allergies Allergy/AdvReac Type Severity Reaction Status Date / Time amoxicillin Allergy Mild RASH Verified 06/15/23 10:33 Medications Home Medications Medication Instructions Recorded Confirmed Last Taken olmesartan 40 mg tablet (Benicar) 40 mg PO QAM 07/28/21 06/15/23 02/02/22 08:00 metoprolol succinate 50 mg 50 mg PO QAM 10/30/21 06/15/23 02/03/22 08:00 tablet,extended release 24 hr (Toprol XL) clopidogrel 75 mg tablet (Plavix) 75 mg PO QAM 12/15/21 06/15/23 02/03/22 08:00 amlodipine 10 mg tablet 10 mg PO QAM 01/12/22 06/15/23 02/03/22 08:00 aspirin 81 mg tablet 81 mg PO DAILY 02/03/22 06/15/23 02/02/22 08:00 rosuvastatin 20 mg tablet 20 mg PO QAM 02/03/22 06/15/23 02/02/22 20:00 blood sugar diagnostic (OneTouch #100 ea 02/06/22 06/09/23 Unknown Verio test strips) blood-glucose meter (OneTouch #1 ea 02/06/22 06/09/23 Unknown Verio Meter) lancets 33 gauge (OneTouch Delica #100 ea 02/06/22 06/09/23 Unknown Lancets) hydralazine 25 mg tablet 25 mg PO TID 06/09/23 06/15/23 Unknown Past Medical History Medical History Abdominal aortic aneurysm Hx, S/P repair 03/2022 Acute anxiety CAD (coronary artery disease) S/P angioplasty and stenting of Cxr and mid LAD- 2012 (now with occlusion of LAD stent and known total occlusion of RCA with collaterals from the septal perforators of the LAD before the occlusion) Follows with Dr. 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 Exercise / Class Metabolic Activity II 4-5 Yardwork/Stairs/Walk up hill (denies chest discomfort or shortness of breath with 1 FOS) Past Family History Family History Brother Hypertension Other No family history of adverse response to anesthesia Denies family history of Ovarian cancer Prostate cancer Breast cancer Lung cancer Colorectal cancer Past Surgical History Surgical History H/O heart artery stent Stents x3 (2012) History of ear surgery History of repair of aneurysm of abdominal aorta Stent (03/2022) History of tubal ligation Status post carotid surgery Right TCAR (02/03/22): Grade 2 view, MAC#3, ETT 7 at [facility] Per post-op anesthesia progress note, "pt feels better after duoneb. ok to go to icu" Past Anesthesia History No Hx of Anesthesia Complications and No Family Hx of Anesthesia Complications History of PONV No Hx of PONV and No Hx of Motion Sickness Social History Smoking Status: Current every day smoker tobacco type: cigarettes Smoking cigarettes per day: 10 CIG DAILY-advised Do You Dip or Chew Tobacco: No Hx Alcohol Use: No Hx Substance Use: No substance use type: does not use Review of Systems Patient denies chest pain, shortness of breath, dyspnea on exertion, reflux, fever, chills, cough, wheezing, or palpitations. Physical Exam Vital Signs Vitals BP 159/73 right arm P 75 TEMP 98.5 SP02 97% on RA RESP 18 Physical Patient resting comfortably in chair in no acute distress, alert and oriented, responding appropriately throughout visit Full cervical extension range of motion without pain TMD 3.5 finger breadths Mallampati Score 2 Dentition: several caps/crowns, denies chipped or loose teeth, implants or bridges Lungs: normal respiratory effort. Good air movement, clear throughout to auscultation, no adventitious breath sounds Cardiac: regular rate and rhythm, no murmurs noted Carotid arteries: negative bruit bilat Extremities: clubbing of fingernails Lab Results Anesthesia Preop Results Results Anesthesia Widget: WBC 11.02 K/ul (4.8-10.8) H 06/17/23 Hgb 15.4 g/dl (12.0-16.0) 06/17/23 Hct 45.2 % (37.0-47.0) 06/17/23 Plt 239 K/uL (130-400) 06/17/23 Na 138 mmol/L (136-145) 06/17/23 K 4.0 mmol/L (3.5-5.1) 06/17/23 Cl 108 mmol/L (98-107) H 06/17/23 CO2 22 mmol/L (21-32) 06/17/23 BUN 23 mg/dl (6-23) 06/17/23 Creat 1.11 mg/dl (0.6-1.2) 06/17/23 Glucose Level 202 mg/dl (70-99(Fasting)) H 06/17/23 PT 10.7 Seconds (9.0-12.0) 06/17/23 PTT 30 Seconds (21-31) 06/17/23 INR 1.0 (0.9-1.1) 06/17/23 HA1c 6.5 % (4.5-5.6) H 06/17/23 Blood Type O Positive 06/17/23 Antibody Screen NEGATIVE 06/17/23 Testing Electrocardiogram Date: 06/17/23 Sinus rhythm with 1st degree AV block, rate 69 bpm Chest X-Ray Date: 06/17/23 1. No acute cardiopulmonary findings. 2. No change in lower lung interstitial thickening which is likely chronic. Stress Test Date: 10/02/21 Exercise METS 5 MPHR 71% Negative for ischemia EF 65% No LV regional wall motion abnormalities Asymmetric basal septal hypertrophy of the elderly Other Testing Neck CTA 06/09/23 1. Total occlusion of the left internal carotid origin as well as the origin of the left subclavian artery. These are unchanged from prior exam. 2. Interval placement of a right carotid stent without hemodynamically significant stenosis of the internal carotid artery.
--- NOTE | 2023-07-13 12:19 | History & Physical Report ---
Date of Service July 13, 2023 Assessment & Plan (1) Stenosis of right carotid artery: Plan: At this point being that there is a greater than 80% restenosis of the stent at the origin of the right internal carotid artery we recommended a repeat TCAR with possibly inserting a new stent. The narrowing on CAT scan is approximately 80% when compared to the internal carotid artery at the distal end of the stent. The patient and her family member understood the risks options and benefits and the problem with the restenosis. The risks and benefits were documented in the consent. She agreed to go ahead with the procedure History of Present Illness Chief Complaint: Restenosis of right internal carotid artery Primary Care Provider: Maribell Ocampo MD Ms Peraza is a 67-year-old female who had a TCAR done of her right carotid. Postoperatively she has had an ultrasound that showed increased velocities at the end of the stent. She therefore underwent CT angiography. She is asymptomatic from carotid disease at this point. 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 Allergies Allergy/AdvReac Type Severity Reaction Status Date / Time amoxicillin Allergy Mild RASH Verified 06/15/23 10:33 Home Medications Medication Instructions Recorded Confirmed Type olmesartan 40 mg tablet (Benicar) 40 mg PO QAM 07/28/21 06/15/23 History metoprolol succinate 50 mg 50 mg PO QAM 10/30/21 06/15/23 History tablet,extended release 24 hr (Toprol XL) clopidogrel 75 mg tablet (Plavix) 75 mg PO QAM 12/15/21 06/15/23 History amlodipine 10 mg tablet 10 mg PO QAM 01/12/22 06/15/23 History aspirin 81 mg tablet 81 mg PO DAILY 02/03/22 06/15/23 History rosuvastatin 20 mg tablet 20 mg PO QAM 02/03/22 06/15/23 History blood sugar diagnostic (OneTouch #100 ea 02/06/22 06/09/23 Rx Verio test strips) blood-glucose meter (OneTouch #1 ea 02/06/22 06/09/23 Rx Verio Meter) lancets 33 gauge (OneTouch Delica #100 ea 02/06/22 06/09/23 Rx Lancets) hydralazine 25 mg tablet 25 mg PO TID 06/09/23 06/15/23 History Past Med/Surg History Medical History COPD (chronic obstructive pulmonary disease) advanced COPD on PSH PCP office note Diastolic heart failure pt denies, EF on last stress echo > 50% DM type 2 (diabetes mellitus, type 2) Diet controlled. 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 Juares Surgical History History of repair of aneurysm of abdominal aorta Stent (03/2022) Status post carotid surgery Right TCAR (02/03/22): Grade 2 view, MAC#3, ETT 7 at [facility] Per post-op anesthesia progress note, "pt feels better after duoneb. ok to go to icu" H/O heart artery stent Stents x3 (2012) History of ear surgery History of tubal ligation Family History Brother Hypertension Other No family history of adverse response to anesthesia Denies family history of Ovarian cancer Prostate cancer Breast cancer Lung cancer Colorectal cancer Social History Smoking Status: Current every day smoker Age Started Using Tobacco: 19; packs per day: 1; Cigarettes Per Day: 10 CIG DAILY-advised; Second Hand Exposure: No; Do You Dip or Chew Tobacco: No; Tobacco Cessation Education Requested by Patient: No Hx Alcohol Use: No Hx Substance Use: No Preferred Language: Irish Communication Ability: Impaired Communication Ability Comment: Hearing loss Visual Impairment: No Limitations Hearing Ability: Use of Hearing Aid Dna Sequencing Associate Required: No Beliefs That Will Affect Care: None marital status: Current Living Situation: Spouse current occupational status: employed current occupation: secratary Feels Safe at Home: Yes Safety Concerns: Feels Safe At This Time Childhood Exposure to Second-Hand Smoke: No Diet: regular caffeine: Yes (coffee) during the past year weight has: remained stable Dental Care, Regularly: No Physical Activity Frequency: Does not Exercise Seatbelt Use: always Sunscreen Use: No Assistive Devices: Glasses and Hearing Aid - Right Review of Systems All systems reviewed & are unremarkable except as noted in HPI & below Physical Exam Constitutional: WD/WN, vitals as above Neck: trachea midline Respiratory: normal respiratory effort, lungs clear to auscultation Cardiovascular: RRR, no murmur, no edema Vessels: femoral pulses present and radial pulses present Extremities: normal capillary refill Gastrointestinal (Abdomen): normal bowel sounds, soft, nontender, no hepatosplenomegaly Neurologic: CN's II-XI intact bilaterally and moves all extremities Psychiatric: Orientation: alert and oriented x 3
[2023-07-14] MEDS ORDERED: ONDANSETRON INJ 2 MG/ML 2 ML VIAL IV PRN (06:39)
[2023-07-14] MEDS ORDERED: ATROPINE SULFATE 0.1 MG/ML 10ML SYR IV PRN (06:39)
[2023-07-14] MEDS ORDERED: ePHEDrine sulfate 50 MG/ML AMP IV PRN (06:39)
[2023-07-14] MEDS ORDERED: fentaNYL citrate PF 100 MCG/2 ML VIAL ONE (07:18)
[2023-07-14] MEDS ORDERED: GLYCOPYRROLATE 0.2 MG/ML VIAL ONE (07:19)
[2023-07-14] MEDS ORDERED: ROCURONIUM BROMIDE 10 MG/ML 5 ML VIAL IV ONE (07:19)
[2023-07-14] MEDS ORDERED: MIDAZOLAM HCL 1 MG/ML 2ML VIAL ONE (07:19)
[2023-07-14] MEDS ORDERED: PROPOFOL IV EMULSION 10 MG/ML 20 ML VIAL IV ONE (07:19)
[2023-07-14] MEDS ORDERED: LIDOCAINE 2% 2 ML VIAL/AMP(20MG/ML) INFIL ONE (07:19)
[2023-07-14] MEDS ORDERED: ONDANSETRON INJ 2 MG/ML 2 ML VIAL ONE (07:19)
[2023-07-14] MEDS ORDERED: PHENYLEPHRINE HCL 10 MG/ML VIAL ONE ×2 (07:19→09:12)
[2023-07-14] MEDS ORDERED: DOPamine 400MG / 250ML D5W IV ONE (07:21)
[2023-07-14] MEDS: LACTATED RINGER'S 1,000 ML IV SCH ×2 (07:26→14:13)
[2023-07-14] MEDS ORDERED: NITROGLYCERIN/D5W 100 MCG/ML BTL ONE (07:29)
--- NOTE | 2023-07-14 07:46 | History & Physical Bridge Note ---
Date of Service July 14, 2023 History & Physical Bridge Note I have examined the patient, reviewed the History & Physical and in the interval since the performance of the History & Physical I have noted the following changes of clinical significance: no changes noted
[2023-07-14] MEDS: CLINDA 900 MG **Premixed Bag IV SCH (08:03)
[2023-07-14] MEDS ORDERED: ePHEDrine sulfate 50 MG/5 ML SYR ONE (08:22)
[2023-07-14] MEDS ORDERED: HEPARIN SOD (PORCINE) 1000 UNIT/ML ONE (08:39)
[2023-07-14] MEDS ORDERED: PROTAMINE SULFATE 10 MG/ML 5 ML VIAL IV ONE (09:15)
[2023-07-14] MEDS: VISIPAQUE IV ONE (09:17)
[2023-07-14] MEDS: GELATIN SPONGE SZ 100 ONE (09:18)
[2023-07-14] MEDS: THROMBIN FOR SOLN 20000 UNIT KIT ONE (09:18)
[2023-07-14] MEDS: SURGICEL ABSORB HEMOSTAT 2IN X 14IN TOP ONE (09:20)
[2023-07-14] MEDS ORDERED: SUGAMMADEX SODIUM 200 MG/2 ML VIAL IV ONE (09:32)
[2023-07-14] MEDS: BUPIVACAINE/EPINEPHRINE 0.5% MPF 1:200,000 30 ML VIAL ONE (09:32)
[2023-07-14] MEDS: ceFAZolin 330 MG/ML 1 GM VIAL ONE (09:33)
--- NOTE | 2023-07-14 09:42 | Procedure Note ---
Angiogram Post Procedure Fluoroscopy Time (minutes): 1.5 Radiation (mGy): 15 Contrast: 12 Post Operative Report Pre & Post Diagnosis Operation Date: 07/14/23 08:00 Pre-Op Diagnosis: Bilateral Carotid Artery Stenosis Post-Op Diagnosis: Bilateral Carotid Artery Stenosis I identified the patient and participated in the time-out.: Yes Procedure Operation Date: 07/14/23 08:00 Actual Procedures p Redo Right Transcarotid Artery Revascularization(Right), Ultrasound localization of right common femoral vein - Rick Hammer MD Surgeon Rick Hammer MD Core Java Engineer Viki,PAC Estimated Blood Loss 20 Findings Consistent with Post-Op Diagnosis Specimens none Anesthesia Type General Complications none Disposition Accompanied Patient To Recovery: No Disposition: Recovery Room Indications This is a 67-year-old female who had a right TCAR done few months prior to this. Routine postop follow-up she had increased velocities confirmed with CT angio which showed a significant narrowing in the middle portion of the stent. Most likely this is from the stent not being fully expanded. Redo TCAR with balloon dilatation of the stent was recommended. I have discussed the risks options and benefits of the procedure with the patient. The patient understands the risks options and benefits and agrees to the procedure. Description of Procedure The patient was taken to the operating room and placed in supine position. After general anesthesia was accomplished the groins and right side of the neck and chest were prepped and draped in a sterile manner. Timeout was performed and the patient was identified. A transverse incision was made just above the clavicle between the heads of the sternocleidomastoid. This is carried down to where the common carotid artery was identified. It was isolated. It was slung with umbilical tape. Next the U stitch was placed in the common carotid artery with a 5-0 Prolene suture. Patient was given 8000 heparin at that time. Ultrasound was then used to localize the right common femoral vein. The vein was patent and compressed easily. Under ultrasound guidance the right common femoral vein was punctured and the venous sheath was inserted. This was aspirated and flushed with heparinized saline. ACT at that time was 374. Using micropuncture technique the common carotid artery was punctured. The micro sheath was inserted to 3 cm. Injection was then done showing the bifurcation. There was a narrowing seen in the midportion of the previously placed stent. We then inserted the J-wire left and short of the previous stent. The micro sheath was removed and the TCAR sheath was inserted. Once it was in place and held against the artery it was sutured to the chest wall and the incision edge. We then flushed the tubing appropriately. The venous return to was clamped onto the TCAR sheath. It was flushed through and then attached to the venous inflow sheath in the right groin. Sheath was checked for flow. The saline cleared nicely. The common carotid artery was then clamped. Flow reversal was instituted. We inserted a 6 x 25 balloon backloaded on the wire. The wire was passed through the previously placed stent into the petrous portion of the internal carotid. The 6 balloon was then advanced to the narrowing within the stent. Lesion was then predilated with a 6 mm balloon. Balloon was removed. The carotid was allowed to go 2 minutes with flow reversal. Completion angiogram was done at that time which showed a widely patent carotid stent. We did both obliques and an AP view which showed the stent to be now fully expanded with good flow and no residual narrowing. At that point the common carotid artery was unclamped. The venous return tubing was clamped and removed from the TCAR sheath. The blood was allowed to flow back into the venous system. Once this was completed the sheath was pulled from the groin and pressure was applied. The TCAR sheath was then removed and the 5-0 Prolene suture securely tied. Hemostasis was noted of the puncture site. Wound was irrigated with saline solution. Adequate hemostasis was obtained of the wound. Once this was noted the wound was closed in usual fashion using a 3-0 Vicryl suture for the subcutaneous layer and a 4-0 subcuticular Vicryl suture for the skin edges. Dermabond was used for dressing.The patient left the operation room in satisfactory condition and tolerated the procedure well. All needle and sponge counts were correct at the end of the procedure. Simi Mosqueda Pac assisted due to lack of resident availability and was necessary for positioning, draping, retraction, wound closure deep layers, subcutaneous tissue, and skin closure and was necessary for assisting with the case. I attest to the content of the Intraoperative Record and any orders documented therein. Any exceptions are noted below.
[2023-07-14] MEDS ORDERED: PHENYLEPHRINE HCL 25 MG/250 ML NSS IV ONE (10:28)
[2023-07-14] MEDS: PHENYLEPHRINE GTT *PHARM PREP* STANDARD IV SCH (10:30)
[2023-07-14] MEDS: fentaNYL citrate PF 100 MCG/2 ML VIAL IV PRN (10:50)
--- NOTE | 2023-07-14 11:57 | Anesthesiology Progress Note ---
Date of Service July 14, 2023 Anesthesia Post Procedure Vital Signs Vital Signs: Temp Pulse Pulse Resp BP BP BP 07/14/23 11:20 73 18 114/62 07/14/23 11:10 71 20 113/61 07/14/23 11:00 97.5 F L 73 18 109/68 112/58 L 07/14/23 10:50 79 20 110/72 110/57 L 07/14/23 10:40 76 20 107/56 L 07/14/23 10:30 75 20 104/55 L 07/14/23 10:20 76 16 110/72 102/55 L 07/14/23 10:10 79 20 160/58 H 113/59 L 07/14/23 10:05 97.0 F L 90 16 122/57 L 07/14/23 07:06 07/14/23 07:06 97.9 F 66 16 135/74 170/70 H Pulse Ox O2 Del Method O2 Flow Rate 07/14/23 11:20 97 Nasal Cannula 2 07/14/23 11:10 97 Nasal Cannula 2 07/14/23 11:00 96 Nasal Cannula 2 07/14/23 10:50 96 Nasal Cannula 2 07/14/23 10:40 96 Nasal Cannula 2 07/14/23 10:30 96 Nasal Cannula 2 07/14/23 10:20 97 Nasal Cannula 2 07/14/23 10:10 97 Room Air 07/14/23 10:05 98 Oxymask 6 07/14/23 07:06 Room Air 07/14/23 07:06 97 Room Air Pain Intensity Right Neck: Pain Intensity: 3 Transfer of Care Handoff Completed per policy Notes Mental Status: alert / awake / arousable and participated in evaluation Patient Amnestic to Procedure: Yes Nausea / Vomiting: adequately controlled Pain: adequately controlled Airway Patency, RR, SpO2: stable & adequate BP & HR: stable & adequate Hydration State: stable & adequate Anesthetic Complications: no major complications apparent and Pt Satisfied with anesthetic care
[2023-07-14] MEDS ORDERED: STAT IV Infusion **Titration per Protocol STA (12:06)
--- NOTE | 2023-07-14 12:17 | Critical Care Consultation ---
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): Plan CT chest 12/10/2021 personally reviewed: Centrilobular and paraseptal emphysema appreciated bilaterally especially in the upper lobes Multiple small pulmonary nodules appreciated bilaterally up to 5 mm Minimally increased reticular markings in the periphery of bilateral lower lobes No significant mediastinal lymphadenopathy -- S/p TCAR Right-sided Continue with neurochecks Monitor H&H -- Shock Likely post procedural Try to wean off phenylephrine to keep MAP greater than 65 --History of hypertension On amlodipine, hydralazine, metoprolol as well as olmesartan at home Currently medications on hold -- COPD with emphysema Seems like combined pulmonary fibrosis with emphysema As per patient's daughter, patient is in denial regarding her underlying lung disease Would recommend Anoro or Stiolto inhaler on discharge Full PFT prior to next visit No personal or family history of any autoimmune disease like lupus, sarcoid, Sjogren's, rheumatoid No Raynaud's No history of any lung problems in the family --Multiple pulmonary nodules <5 mm Patient with significant smoking history Would recommend repeating a CAT scan as soon as possible Can be done as an outpatient --Active smoker Approximately [id number] smoking history Importance of quitting explained the patient in depth --Dyslipidemia with peripheral vascular disease Continue with atorvastatin and Plavix --Prophylaxis VTE: IPC GI: None Lines: Left radial, peripheral Diet: Cardiac Plan: Monitor H&H Keep MAP greater than 65, try to titrate her off phenylephrine Given the COPD, I do think she is will benefit from an maintenance inhaler. I will start the patient on Anoro to be used on a daily basis Neurochecks I have personally spent 40 minutes of critical care time in the direct management of this patient. This is a life/limb threatening event. This includes time spent evaluating patient, direct bedside care, chart review, placing orders, interpretation of diagnostic studies, discussion with consultants, patient, and family members, as well as other required patient management activities. This time is exclusive of all separately billable procedures, and teaching time and separate from and in addition to any other critical care service time. Please note the above document was generated using voice recognition software. It may contain grammatical, syntax or spelling errors. History of Present Illness Attending Physician: Rick Hammer MD History of Present Illness 67-year-old female came to the hospital to have right-sided TCAR Past medical history: COPD, hypertension Patient was transferred to the ICU for further care from the OR At the time of examination patient was saturating 98% on 2 L nasal cannula. She was not in any distress Heart rate was in the 70s. She was on phenylephrine 0.5 mics with systolic blood pressure in the 100's and MAP in the high 60s. Patient's daughter was also in the room. She denies any chest pain, no abdominal pain. Did complain of some discomfort at the site of the incision. No headache, no blurry vision No nausea or vomiting No personal or family history of any autoimmune disease like lupus, sarcoid, Sjogren's, rheumatoid No Raynaud's No history of any lung problems in the family Social history: >50 pack year smoking history. Used to work as a executive legal secretary. No exposure to chemicals or fumes at work No history of lung cancer in the family Allergies Allergy/AdvReac Type Severity Reaction Status Date / Time amoxicillin Allergy Mild RASH Verified 07/14/23 06:53 Home Medications Medication Instructions Recorded Confirmed Type olmesartan 40 mg tablet (Benicar) 40 mg PO QAM 07/28/21 07/14/23 History metoprolol succinate 50 mg 50 mg PO QAM 10/30/21 07/14/23 History tablet,extended release 24 hr (Toprol XL) clopidogrel 75 mg tablet (Plavix) 75 mg PO QAM 12/15/21 07/14/23 History amlodipine 10 mg tablet 10 mg PO QAM 01/12/22 07/14/23 History aspirin 81 mg tablet 81 mg PO DAILY 02/03/22 07/14/23 History rosuvastatin 20 mg tablet 20 mg PO QAM 02/03/22 07/14/23 History blood sugar diagnostic (OneTouch #100 ea 02/06/22 06/09/23 Rx Verio test strips) blood-glucose meter (OneTouch #1 ea 02/06/22 06/09/23 Rx Verio Meter) lancets 33 gauge (WilliamTouch Delica #100 ea 02/06/22 06/09/23 Rx Lancets) hydralazine 25 mg tablet 25 mg PO TID 06/09/23 07/14/23 History Patient History Medical History COPD (chronic obstructive pulmonary disease) advanced COPD on PSH PCP office note Diastolic heart failure pt denies, EF on last stress echo > 50% DM type 2 (diabetes mellitus, type 2) Diet controlled. 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 per 02/2021 neck CTA Abdominal aortic aneurysm Hx, S/P repair 03/2022 Hearing loss Only 5% function in left ear, M[place]ON[place] in right wears a right hearing aid Carotid stenosis Complete thrombosis of left ICA from the bifurcation to the [place]; >75% stenosis of right ICA per 02/2021 neck CTA HTN (hypertension) variable per pt HLD (hyperlipidemia) CAD (coronary artery disease) S/P angioplasty and stenting of Cxr and mid LAD- 2012 (now with occlusion of LAD stent and known total occlusion of RCA with collaterals from the septal perforators of the LAD before the occlusion) Follows with Dr. Juares Surgical History History of repair of aneurysm of abdominal aorta Stent (03/2022) Status post carotid surgery Right TCAR (02/03/22): Grade 2 view, MAC#3, ETT 7 at [facility] Per post-op anesthesia progress note, "pt feels better after duoneb. ok to go to icu" H/O heart artery stent Stents x3 (2012) History of ear surgery History of tubal ligation Family History Brother Hypertension Other No family history of adverse response to anesthesia Denies family history of Ovarian cancer Prostate cancer Breast cancer Lung cancer Colorectal cancer Social History Smoking Status: Current every day smoker Age Started Using Tobacco: 19; packs per day: 1; Cigarettes Per Day: 10 CIG DAILY-advised; Second Hand Exposure: No; Do You Dip or Chew Tobacco: No; Tobacco Cessation Education Requested by Patient: No Hx Alcohol Use: No Hx Substance Use: No Preferred Language: Mozambican Communication Ability: Impaired Communication Ability Comment: Hearing loss Visual Impairment: No Limitations Hearing Ability: Use of Hearing Aid Carbon Accountant Required: No Beliefs That Will Affect Care: None marital status: Current Living Situation: Spouse current occupational status: employed current occupation: secratary Feels Safe at Home: Yes Safety Concerns: Feels Safe At This Time Childhood Exposure to Second-Hand Smoke: No Diet: regular caffeine: Yes (coffee) during the past year weight has: remained stable Dental Care, Regularly: No Physical Activity Frequency: Does not Exercise Seatbelt Use: always Sunscreen Use: No Assistive Devices: Glasses and Hearing Aid - Right Review of Systems Review of Systems: All systems reviewed & are unremarkable except as noted in HPI & below Physical Exam Physical Exam: Constitutional: No acute distress HEENT: EOMI, PERRLA Respiratory system: Decreased air entry bilaterally, no wheeze, no rhonchi, positive crackles bilaterally, ? Velcro-like CVS: S1-S2 positive, no murmurs or gallops Abdomen: Soft, nontender, nondistended, positive bowel sounds x4 Extremities: +2 pulses bilaterally radialis/ dorsalis pedis, no cyanosis, no edema Neuro: Awake alert oriented x3, cranial nerves II to XII grossly intact Psych: Normal mood and affect Skin: no rashes, warm and dry Lymphatic: no cervical or axillary lymphadenopathy Results & Data Results & Data Vital Signs (Past 12 Hours) Vital Signs Temp Pulse Pulse Resp BP BP BP 07/14/23 11:20 73 18 114/62 07/14/23 11:10 71 20 113/61 07/14/23 11:00 36.4 C L 73 18 109/68 112/58 L 07/14/23 10:50 79 20 110/72 110/57 L 07/14/23 10:40 76 20 107/56 L 07/14/23 10:30 75 20 104/55 L 07/14/23 10:20 76 16 110/72 102/55 L 07/14/23 10:10 79 20 160/58 H 113/59 L 07/14/23 10:05 36.1 C L 90 16 122/57 L 07/14/23 07:06 07/14/23 07:06 36.6 C 66 16 135/74 170/70 H Pulse Ox O2 Del Method O2 Flow Rate 07/14/23 11:20 97 Nasal Cannula 2 07/14/23 11:10 97 Nasal Cannula 2 07/14/23 11:00 96 Nasal Cannula 2 07/14/23 10:50 96 Nasal Cannula 2 07/14/23 10:40 96 Nasal Cannula 2 07/14/23 10:30 96 Nasal Cannula 2 07/14/23 10:20 97 Nasal Cannula 2 07/14/23 10:10 97 Room Air 07/14/23 10:05 98 Oxymask 6 07/14/23 07:06 Room Air 07/14/23 07:06 97 Room Air Coding Level of Care Code 00478 CRITICAL CARE 1ST 30-74M Diagnoses Tobacco use Z72.0 Pulmonary nodules R91.8 HLD (hyperlipidemia) E78.5 HTN (hypertension) I10 Carotid stenosis I65.29 Internal carotid artery stent present Z95.828 Stenosis of right carotid artery I65.21 COPD with emphysema J43.9 Combined pulmonary fibrosis and emphysema (CPFE) J43.9; J84.10
[2023-07-14] MEDS: hydrALAZINE HCL 25 MG TAB PO SCH (13:14)
[2023-07-14] MEDS: oxyCODONE/ACETAMINOPHEN 5mg/325mg TAB PO PRN (14:12)
[2023-07-14] MEDS: CLINDAMYCIN/D5W 600 MG/50 ML BAG IV SCH (15:31)
[2023-07-14] MEDS: PHENYLEPHRINE/NSS 25 MG/250 ML BAG IV SCH (21:21)
[2023-07-15] MEDS: LACTATED RINGER'S 500 ML IV ONE (05:56)
[2023-07-15 06:35] LABS: Basophils # (auto) 0.06 K/uL (0.00-0.20); Basophils % (auto) 0.6 %; Eosinophils # (auto) 0.28 K/uL (0.00-0.50); Eosinophils % (auto) 2.7 %; Hematocrit (blood only) 33.4 % (37.0-47.0); Hemoglobin 11.4 g/dl (12.0-16.0); Immature Granulocytes # (auto) 0.03 K/uL (0.01-0.20); Immature Granulocytes % (auto) 0.3 %; Lymphocytes # (auto) 2.93 K/uL (1.20-3.40); Lymphocytes % (auto) 27.8 %; Mean Corpuscular Hemoglobin 31.7 pg (25.0-34.0); Mean Corpuscular Hgb Conc 34.1 g/dL (32.0-36.0); Mean Corpuscular Volume 92.8 fL (80.0-100.0); Mean Platelet Volume 10.8 fL (9.4-12.4); Monocytes % (auto) 7.6 %; Neutrophils # (auto) 6.45 K/uL (1.40-6.50); Platelet Count 181 K/uL (130-400); RDW Coefficient of Variation 13.8 % (11.5-14.5); RDW Standard Deviation 46.7 fL (36.4-46.3); White Blood Count 10.55 K/ul (4.8-10.8)
[2023-07-15 06:44] LABS: Albumin Globulin Ratio 1.4 (0.9-2); Albumin Level 3.3 gm/dl (3.4-5.0); BUN Creatinine Ratio 19.4 (10-20); Bilirubin,Total 0.8 mg/dl (0.2-1.0); Calcium 7.9 mg/dl (8.6-10.3); Creatinine Clr Calc Pharmacy 39.2 ml/min; Est GFR (African American) 49.6 ml/min; Est GFR (Non-African American) 42.8 ml/min; Globulin 2.4 gm/dl (2.5-4.0); Potassium 4.3 mmol/L (3.5-5.1); Total Protein 5.7 gm/dl (6.0-8.3)
--- NOTE | 2023-07-15 07:28 | Critical Care Progress Note ---
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): (10) JOSETTE (acute kidney injury): Plan CT chest 12/10/2021 personally reviewed: Centrilobular and paraseptal emphysema appreciated bilaterally especially in the upper lobes Multiple small pulmonary nodules appreciated bilaterally up to 5 mm Minimally increased reticular markings in the periphery of bilateral lower lobes No significant mediastinal lymphadenopathy -- S/p TCAR Right-sided on 07/14/2023 Continue with neurochecks Monitor H&H -- Shock Likely post procedural Try to wean off phenylephrine to keep MAP greater than 65 -- JOSETTE Monitor BUN/creatinine Avoid nephrotoxic medications Strict ins and outs --History of hypertension On amlodipine, hydralazine, metoprolol as well as olmesartan at home Currently medications on hold -- COPD with emphysema Seems like combined pulmonary fibrosis with emphysema As per patient's daughter, patient is in denial regarding her underlying lung disease Would recommend Anoro or Stiolto inhaler on discharge Full PFT prior to next visit No personal or family history of any autoimmune disease like lupus, sarcoid, Sjogren's, rheumatoid No Raynaud's No history of any lung problems in the family --Multiple pulmonary nodules <5 mm Patient with significant smoking history Would recommend repeating a CAT scan as soon as possible Can be done as an outpatient --Active smoker Approximately [id number] smoking history Importance of quitting explained the patient in depth --Dyslipidemia with peripheral vascular disease Continue with atorvastatin and Plavix --Prophylaxis VTE: IPC GI: None Lines: Left radial, peripheral Diet: Cardiac Plan: In/out: +2.7 L, urine output 440 mL There has been drop in hemoglobin which could be dilutional. Repeat H&H later today Increasing creatinine compared to patient's baseline. Repeat BMP later today Continue with IV fluids Patient's blood pressure is on the softer side with MAP ranging in the low 60s. Will give 250 mm of bolus. If the MAP is still less than 65 and will resume the phenylephrine especially given the JOSETTE Disposition as per vascular surgery Please note the above document was generated using voice recognition software. It may contain grammatical, syntax or spelling errors.Any formal questions or concerns about the content, text or information contained within the body of this dictation should be directly addressed to the provider for clarification. Admission and Anticipated Discharge Date Admission Date: July 14, 2023 Subjective Patient seen and examined at bedside. No acute distress, no adverse events overnight Patient systolic blood pressure was in the high 70s at the time of examination with MAP in the low 60s She complains of some soreness at the site of the incision as well as in the mouth. Denies any difficulty swallowing. Finished her breakfast Denied any headache, no blurry vision No weakness No nausea or vomiting Review of Systems 2 Review of Systems: All systems reviewed & are unremarkable except as noted in Subjective Physical Exam 2 Physical Exam: Constitutional: No acute distress HEENT: EOMI, PERRLA Respiratory system: Decreased air entry bilaterally, no wheeze, no rhonchi, positive crackles bilaterally, ? Velcro-like CVS: S1-S2 positive, no murmurs or gallops Abdomen: Soft, nontender, nondistended, positive bowel sounds x4 Extremities: +2 pulses bilaterally radialis/ dorsalis pedis, no cyanosis, no edema Neuro: Awake alert oriented x3, cranial nerves II to XII grossly intact Psych: Normal mood and affect G/U: No [place] Skin: no rashes, warm and dry Lymphatic: no cervical or axillary lymphadenopathy Results & Data Results & Data Vital Signs (Past 12 Hours) Vital Signs Temp Pulse Resp Pulse Ox 07/15/23 07:21 36.9 C 07/15/23 07:00 56 L 17 92 07/15/23 06:50 56 L 22 92 07/15/23 06:40 56 L 30 H 91 07/15/23 06:20 63 29 H 93 07/15/23 06:10 71 22 92 07/15/23 06:00 56 L 22 91 07/15/23 05:50 64 20 89 L 07/15/23 05:40 57 L 22 90 07/15/23 05:30 55 L 24 91 07/15/23 05:20 57 L 28 H 91 07/15/23 05:10 55 L 26 H 92 07/15/23 05:00 61 25 H 91 07/15/23 04:50 59 L 26 H 93 07/15/23 04:40 59 L 28 H 93 07/15/23 04:30 69 16 90 07/15/23 04:20 89 L 07/15/23 04:10 58 L 30 H 88 L 07/15/23 04:00 53 L 23 87 L 07/15/23 03:50 55 L 25 H 88 L 07/15/23 03:40 54 L 22 88 L 07/15/23 03:30 55 L 23 88 L 07/15/23 03:20 54 L 23 89 L 07/15/23 03:10 53 L 23 88 L 07/15/23 03:00 53 L 23 89 L 07/15/23 02:50 53 L 24 89 L 07/15/23 02:40 52 L 25 H 89 L 07/15/23 02:30 59 L 25 H 89 L 07/15/23 02:20 53 L 24 90 07/15/23 02:12 55 L 23 88 L 07/15/23 02:00 53 L 23 91 07/15/23 01:50 53 L 28 H 89 L 07/15/23 01:40 52 L 25 H 88 L 07/15/23 01:30 52 L 24 88 L 07/15/23 01:20 56 L 21 87 L 07/15/23 01:10 55 L 28 H 87 L 07/15/23 01:00 55 L 29 H 91 07/15/23 00:50 56 L 23 94 07/15/23 00:49 36.6 C 07/15/23 00:40 65 28 H 91 07/15/23 00:30 55 L 19 93 07/15/23 00:20 55 L 15 90 07/15/23 00:10 56 L 30 H 94 07/15/23 00:00 56 L 21 94 07/15/23 00:00 57 L 07/14/23 23:50 57 L 26 H 91 07/14/23 23:40 56 L 23 89 L 07/14/23 23:30 53 L 22 91 07/14/23 23:20 54 L 24 91 07/14/23 23:10 57 L 23 89 L 07/14/23 23:00 54 L 22 91 07/14/23 22:50 54 L 21 91 07/14/23 22:40 60 25 H 92 07/14/23 22:30 60 18 92 07/14/23 22:20 56 L 20 90 07/14/23 22:10 54 L 22 92 07/14/23 22:00 53 L 22 91 07/14/23 21:50 53 L 22 89 L 07/14/23 21:40 55 L 21 91 07/14/23 21:30 53 L 20 88 L 07/14/23 21:20 57 L 27 H 90 07/14/23 21:10 54 L 23 89 L 07/14/23 21:00 58 L 26 H 89 L 07/14/23 20:50 57 L 24 89 L 07/14/23 20:40 56 L 17 93 07/14/23 20:36 36.6 C 07/14/23 20:30 56 L 20 91 07/14/23 20:20 55 L 28 H 90 07/14/23 20:10 51 L 20 94 07/14/23 20:00 62 32 H 93 07/14/23 19:50 54 L 24 92 07/14/23 19:40 52 L 17 92 07/14/23 19:30 53 L 17 93 Laboratory Results 07/15/23 06:07 07/15/23 06:07 Coding Level of Care Code 96358 SUB INP/OBS CARE 3/50MIN Diagnoses Tobacco use Z72.0 Pulmonary nodules R91.8 HLD (hyperlipidemia) E78.5 HTN (hypertension) I10 Carotid stenosis I65.29 Internal carotid artery stent present Z95.828 Stenosis of right carotid artery I65.21 COPD with emphysema J43.9 Combined pulmonary fibrosis and emphysema (CPFE) J43.9; J84.10 JOSETTE (acute kidney injury) N17.9
[2023-07-15] MEDS: amLODIPine BESYLATE 5 MG TAB PO SCH (08:01)
[2023-07-15] MEDS: ROSUVASTATIN CALCIUM 20 MG TAB PO SCH (08:01)
[2023-07-15] MEDS: ASPIRIN 81 MG ECTAB PO SCH (08:02)
[2023-07-15] MEDS: CLOPIDOGREL BISULFATE 75 MG TAB PO SCH (08:02)
[2023-07-15] MEDS: LACTATED RINGER'S 250 ML IV SCH (08:15)
[2023-07-15] MEDS ORDERED: METOPROLOL SUCC 50MG EXT REL TAB PO SCH (09:00)
[2023-07-15] MEDS ORDERED: LOSARTAN POTASSIUM 50 MG TAB PO SCH (09:00)
[2023-07-15 12:15] LABS: Hematocrit (blood only) 34.5 % (37.0-47.0)
[2023-07-15 12:40] LABS: Calcium 8.4 mg/dl (8.6-10.3); Potassium 4.2 mmol/L (3.5-5.1)
[2023-07-15 12:45] LABS: BUN Creatinine Ratio 19.3 (10-20); Creatinine Clr Calc Pharmacy 42.5 ml/min; Est GFR (African American) 54.7 ml/min; Est GFR (Non-African American) 47.2 ml/min
--- NOTE | 2023-07-15 13:06 | Surgery Progress Note ---
Date of Service July 15, 2023 Assessment & Plan (1) Stenosis of right carotid artery: Plan Patient pod #1 from captain airline pilot of right internal carotid artery stent. She is doing well. Will d/c today. Admission and Anticipated Discharge Date Admission Date: July 14, 2023 Subjective No complaints other than having slight difficulty with urination. Physical Exam Constitutional: WD/WN, vitals as above Neck: trachea midline Respiratory: normal respiratory effort, lungs clear to auscultation Cardiovascular: RRR, no murmur, no edema Skin: + incision (small hematoma of incision s ite) Neurologic: CN's II-XI intact bilaterally and moves all extremities Psychiatric: Orientation: alert and oriented x 3 Results & Data Vital Signs (Past 12 Hours) Vital Signs Temp Pulse Resp BP Pulse Ox 07/15/23 11:44 36.6 C 07/15/23 11:00 64 16 93 07/15/23 10:50 82 11 L 77 L 07/15/23 10:40 77 13 92 07/15/23 10:30 76 16 92 07/15/23 10:24 175/81 H 07/15/23 10:24 61 19 95 07/15/23 10:20 56 L 15 95 07/15/23 10:10 77 23 90 07/15/23 10:00 93 07/15/23 09:50 94 07/15/23 09:40 67 27 H 93 07/15/23 09:30 63 16 92 07/15/23 09:20 55 L 24 92 07/15/23 09:10 56 L 25 H 90 07/15/23 09:00 62 27 H 90 07/15/23 08:50 62 33 H 92 07/15/23 08:40 70 29 H 92 07/15/23 08:30 58 L 23 90 07/15/23 08:20 57 L 20 94 07/15/23 08:10 57 L 20 93 07/15/23 08:00 57 L 07/15/23 08:00 59 L 21 92 07/15/23 07:50 58 L 28 H 93 07/15/23 07:40 58 L 23 93 07/15/23 07:30 65 23 92 07/15/23 07:21 36.9 C 07/15/23 07:20 51 L 21 93 07/15/23 07:10 58 L 21 91 07/15/23 07:00 56 L 17 92 07/15/23 06:50 56 L 22 92 07/15/23 06:40 56 L 30 H 91 07/15/23 06:20 63 29 H 93 07/15/23 06:10 71 22 92 07/15/23 06:00 56 L 22 91 07/15/23 05:50 64 20 89 L 07/15/23 05:40 57 L 22 90 07/15/23 05:30 55 L 24 91 07/15/23 05:20 57 L 28 H 91 07/15/23 05:10 55 L 26 H 92 07/15/23 05:00 61 25 H 91 07/15/23 04:50 59 L 26 H 93 07/15/23 04:40 59 L 28 H 93 07/15/23 04:30 69 16 90 07/15/23 04:20 89 L 07/15/23 04:10 58 L 30 H 88 L 07/15/23 04:00 53 L 23 87 L 07/15/23 03:50 55 L 25 H 88 L 07/15/23 03:40 54 L 22 88 L 07/15/23 03:30 55 L 23 88 L 07/15/23 03:20 54 L 23 89 L 07/15/23 03:10 53 L 23 88 L 07/15/23 03:00 53 L 23 89 L 07/15/23 02:50 53 L 24 89 L 07/15/23 02:40 52 L 25 H 89 L 07/15/23 02:30 59 L 25 H 89 L 07/15/23 02:20 53 L 24 90 07/15/23 02:12 55 L 23 88 L 07/15/23 02:00 53 L 23 91 07/15/23 01:50 53 L 28 H 89 L 07/15/23 01:40 52 L 25 H 88 L 07/15/23 01:30 52 L 24 88 L 07/15/23 01:20 56 L 21 87 L 07/15/23 01:10 55 L 28 H 87 L
--- NOTE | 2023-07-20 10:26 | Discharge Summary ---
Date of Service July 20, 2023 Admission HPI Per Admitting Provider Ms Peraza is a 67-year-old female who had a TCAR done of her right carotid. Postoperatively she has had an ultrasound that showed increased velocities at the end of the stent. She therefore underwent CT angiography. She is asymptomatic from carotid disease at this point. 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 Admission Exam Per Admitting Provider Constitutional: WD/WN, vitals as above Neck: trachea midline Respiratory: normal respiratory effort, lungs clear to auscultation Cardiovascular: RRR, no murmur, no edema Vessels: femoral pulses present and radial pulses present Extremities: normal capillary refill Gastrointestinal (Abdomen): normal bowel sounds, soft, nontender, no hepatosplenomegaly Neurologic: CN's II-XI intact bilaterally and moves all extremities Psychiatric: Orientation: alert and oriented x 3 Principal Diagnosis 1. s/p Redo R TCAR 2. R ICA restenosis Discharge Exam Constitutional WD/WN, vitals as above Neck trachea midline Respiratory normal respiratory effort, lungs clear to auscultation Cardiovascular RRR, no murmur, no edema Vessels: femoral pulses present and radial pulses present Extremities: normal capillary refill Gastrointestinal (Abdomen) normal bowel sounds, soft, nontender, no hepatosplenomegaly Skin + incision (small hematoma of incision site) Neurologic CN's II-XI intact bilaterally and moves all extremities Psychiatric Orientation: alert and oriented x 3 Discharge Data Allergies Allergy/AdvReac Type Severity Reaction Status Date / Time amoxicillin Allergy Mild RASH Verified 07/14/23 06:53 Consultations 07/14/23 12:06 Consult Granulator Routine Procedures Performed Operation Date: 07/14/23 08:00 Actual Procedures p Redo Right Transcarotid Artery Revascularization(Right) - Rick Hammer MD Ordered Studies 07/14/23 06:38 sono, invasive monitoring [US point of care ultrasound] Urgent 07/14/23 07:10 EV angio carotid cerv RT Routine US EV guide vascular access Routine Hospital Course (1) Stenosis of right carotid artery: Pt doing well post op. D/C home Total Time Total Time Spent Total Time Spent (In Minutes): 0 Discharge Plan Discharge Items Patient Disposition: Home - Self-Care Reason For Visit: Bilateral Carotid Artery Stenosis Discharge Diagnosis: recurrent right internal carotid artery stenosis Activity: Per Instructions section Non-emergency contact: Surgeon Call non-emergency contact if: your temperature is above 101.5, your wound has increased redness, your wound has increased drainage and your wound pain has increased Follow-up/Referrals: Maribell Ocampo MD [Primary Care Provider] - 07/22/23 10:30 am (You will be seen in the [facility] office. ) Diet: Heart Healthy Addtl Attending Provider Instructions: SPECIAL CARE INSTRUCTIONS: Medications: * Continue to take Aspirin, Plavix, and statin as directed. Incision Care: * You may shower, but do not rub incision. You may let the warm soapy water run over it. Be sure to dry the incision well after bathing. * Do not shave directly over the incision until it is healed. * DO NOT IMMERSE THE INCISION IN A TUB/POOL/etc. UNTIL HEALED. Restrictions: * Do not drive for at least one week or if you are still taking any narcotic pain medication. * Do not lift anything heavier than a gallon of milk for one week after going home. Possible Complications: * Numbness - It is normal to have some numbness around the incision. Numbness can extend beyond the incision to areas of the neck, ear and face. The numbness is due to bruising of nerves during the surgery and will gradually improve over a period of months. * Hoarseness/Difficulty Speaking and Swallowing - The bruising of nerves in the neck can also cause a hoarse voice, difficulty speaking or swallowing. This may improve over time, HOWEVER, if it continues for more than a few days please contact our office ([phone]). * Excessive Swelling - There will be some swelling immediately after surgery which usually resolves within one week. If you notice that the swelling is getting worse, notify your surgeon ([phone]). * Drainage/Bleeding - If there is any drainage or bleeding, it should be a very small amount (less than a teaspoon per day). If you have excessive bleeding or drainage from the incision, call your surgeon ([phone]) right away. ACTIVATION OF EMERGENCY MEDICAL SYSTEM: Call 911, immediately, if you experience any of the following: Warning Signs and Symptoms of Stroke: * Sudden numbness or weakness of the face, arm or leg, especially on one side of the body * Sudden confusion, trouble speaking or understanding * Sudden trouble seeing in one or both eyes * Sudden trouble walking, dizziness, loss of balance or coordination * Sudden severe headache with no cause Do not delay calling 911 if you experience any warning signs or symptoms of a stroke. Delay in seeking medical attention may affect what treatments can be given to you. Risk Factors for Stroke: You can reduce your chances of stroke by working with your medical provider to adopt a healthy lifestyle. Some specific ways to lower your chance of stroke are: * If you are a smoker, now is the time to stop smoking cigarettes * If you are diabetic, improve the control of your blood sugars * Avoid excessive amounts of alcohol * Control high blood pressure * Lose weight if you are overweight * Be sure to lead an active lifestyle * Eat a healthy diet low in salt, cholesterol and fat You should know about other risk factors for stroke that you are unable to control. These include: * Age 55 years or older * Male gender * Certain racial groups: , or / * Family History of Stroke, Mini stroke or Heart Attack * Sickle Cell Disease You will be receiving a call from the Vascular Surgery Nurse after you are discharged. FOLLOW UP VISIT: It is important for you to keep your follow up appointments with your medical provider. Keep any scheduled doctor appointments. Call [phone] to schedule a follow up appointment if one not already scheduled. Stand-Alone Forms: My [facility] [employer], Smoking Cessation Medications and DC Order Prescriptions: New oxycodone-acetaminophen [Percocet] 5-325 mg tablet 1 tab PO Q8H PRN (Reason: pain) Qty: 10 0RF Continued (DME) lancets [OneTouch Delica Lancets] 33 gauge misc See Rx Instructions .Route Qty: 100 3RF Rx Instructions: Testing BS daily (DME) OneTouch Verio test strips Strip See Rx Instructions .Route Qty: 100 3RF Rx Instructions: Testing BS daily (DME) blood-glucose meter [OneTouch Verio Meter] Misc See Rx Instructions .Route Qty: 1 0RF Rx Instructions: Testing BS daily olmesartan [Benicar] 40 mg tablet 40 mg PO QAM Rx Instructions: 40 mg PO clopidogrel [Plavix] 75 mg tablet 75 mg PO QAM amlodipine 10 mg Tablet 10 mg PO QAM aspirin 81 mg Tablet 81 mg PO DAILY rosuvastatin 20 mg Tablet 20 mg PO QAM metoprolol succinate [Toprol XL] 50 mg tablet extended release 24 hr 50 mg PO QAM hydralazine 25 mg Tablet 25 mg PO TID Discharge Orders: Discharge Order (Routine); Ordered 07/15/23 Ordered By: Rick Hammer Admission Data Admit Date/Time: 07/14/23 09:29 Attending Provider: Rick Hammer Admit Provider: Rick Hammer Primary Care Provider: Maribell Ocampo Other Providers: Justin Romero; Lionel Young; Roberto Miller; Raúl Hi; Julianne Rodriguez Muqueet; Migel Weeks; Love Pineda; Re Wilder; Alex Tristan; Elian Ayala; Margareth Perez Other Interventions: Discharge Summary Assessment (RN) Last Done: 07/15/23 13:35
== END 2023-07-15 14:18 | disposition home or self-care (01) | DRG 253 ==
LOC: ASU 06:24 → 1E 07:46
PROC: EV.TCAR (2023-07-14 08:00)
DX: Y71.2 Prosthetic and other implants, materials and accessory cardiovascular devices associated with adverse incidents; I11.0 Hypertensive heart disease with heart failure; I65.21 Occlusion and stenosis of right carotid artery; T81.10XA Postprocedural shock unspecified, initial encounter; F17.210 Nicotine dependence, cigarettes, uncomplicated; Z79.02 Long term (current) use of antithrombotics/antiplatelets; Z79.82 Long term (current) use of aspirin; I25.10 Atherosclerotic heart disease of native coronary artery without angina pectoris; Y92.019 Unspecified place in single-family (private) house as the place of occurrence of the external cause; E78.5 Hyperlipidemia, unspecified; Z88.1 Allergy status to other antibiotic agents; N17.9 Acute kidney failure, unspecified; I50.32 Chronic diastolic (congestive) heart failure; Y92.230 Patient room in hospital as the place of occurrence of the external cause; J43.9 Emphysema, unspecified; Z95.5 Presence of coronary angioplasty implant and graft; Y83.8 Other surgical procedures as the cause of abnormal reaction of the patient, or of later complication, without mention of misadventure at the time of the procedure; T82.858A Stenosis of other vascular prosthetic devices, implants and grafts, initial encounter; R91.8 Other nonspecific abnormal finding of lung field